=== PATIENT | male | born 1960 | race Caucasian/White ===

== ENCOUNTER → 2016-09-12 | Outpatient (REF) | payer BC ==
[~2016-09-12] MED LIST: ASPI81TA85 PO; CELE-19 PO; CIPR500T89 PO; CRES20TA PO; FISH1000 PO; FLAG500T PO; MINEOIL3 PO; NORC5TAB PO; PAME10CA PO; PRIL20CA9 PO; TOPA200T6 PO; TYLE325T5 PO; VITMTA PO; [UNRECOGNIZED DRUG - CODE] PO
== END ==
LOC: M SFHCADAM 08:59
PROVIDERS: ATTEND Physician Assistant Medical
DX: R10.30 Lower abdominal pain, unspecified (principal)

== ENCOUNTER → 2016-09-19 | Outpatient (REF) | payer BC | LOC: M SFHCADAM 09:04 | PROVIDERS: ATTEND Physician Assistant Medical | DX: N41.0 Acute prostatitis (principal) ==

== ENCOUNTER → 2016-10-06 | Outpatient (REF) | payer BC ==
[2016-10-06 16:38] LABS: BASO % 0.5 % (0.0-1.0); EOS # 0.4 K/mm3 (0.0-0.50); EOS % 4.1 % (0.0-3.0); LARGE UNSTAINED CELL # 0.1 K/mm3 (0.0-0.4); LARGE UNSTAINED CELL % 0.9 % (0.0-4.0); LYMPH # 2.1 K/mm3 (1.5-4.5); LYMPH % 19.9 % (24.0-44.0); MEAN CORPUSCULAR HEMOGLOBIN 32.9 pg (27.0-33.0); MEAN CORPUSCULAR HGB CONC 34.2 g/dl (32.0-36.5); MEAN CORPUSCULAR VOLUME 96.3 fl (80.0-96.0); MONO # 0.8 K/mm3 (0.0-0.8); MONO % 7.8 % (0.0-5.0); NEUTROPHILS # 6.8 K/mm3 (1.8-7.7); NEUTROPHILS % 66.8 % (36.0-66.0); PLATELET COUNT, AUTOMATED 159 k/mm3 (150-450); RED CELL DISTRIBUTION WIDTH 12.4 % (11.5-14.5); WHITE BLOOD COUNT 10.1 K/mm3 (4.0-10.0)
[2016-10-06 16:53] LABS: ALBUMIN 3.9 GM/DL (3.2-5.2); ALBUMIN/GLOBULIN RATIO 1.15 (1.00-1.93); ALKALINE PHOSPHATASE 158 U/L (45-117); ALT/SGPT 102 U/L (12-78); ANION GAP 10 MEQ/L (8-16); AST/SGOT 102 U/L (15-37); BILIRUBIN,TOTAL 0.8 MG/DL (0.2-1.0); BLOOD UREA NITROGEN 12 MG/DL (7-18); CALCIUM LEVEL 8.9 MG/DL (8.5-10.1); CARBON DIOXIDE LEVEL 27 MEQ/L (21-32); CHLORIDE LEVEL 100 MEQ/L (98-107); CREATININE FOR GFR 1.02 MG/DL (0.70-1.30); GLOMERULAR FILTRATION RATE > 60.0 (>56); GLUCOSE, FASTING 357 MG/DL (70-105); POTASSIUM SERUM 4.6 MEQ/L (3.5-5.1); SODIUM LEVEL 137 MEQ/L (136-145); TOTAL PROTEIN 7.3 GM/DL (6.4-8.2)
[2016-10-06 17:45] LABS: ERYTHROCYTE SEDIMENTATION RATE 41 mm/hr (0-20)
== END ==
LOC: M SFHCADAM 11:45
PROVIDERS: ATTEND Physician Assistant Medical
DX: M79.1 Myalgia (principal)

== ENCOUNTER 2016-10-09 08:10 | Emergency (ER) | payer BC ==
[2016-10-09] MEDS ORDERED: KETOROLAC 30 MG/ML VIAL (J1885) As Ordered ONE (09:10)
[2016-10-09 09:48] LABS: BASO # 0.1 K/mm3 (0.0-0.2); BASO % 0.7 % (0.0-1.0); EOS # 0.2 K/mm3 (0.0-0.50); EOS % 2.8 % (0.0-3.0); LARGE UNSTAINED CELL # 0.2 K/mm3 (0.0-0.4); LARGE UNSTAINED CELL % 2.2 % (0.0-4.0); LYMPH # 1.3 K/mm3 (1.5-4.5); LYMPH % 15.6 % (24.0-44.0); MEAN CORPUSCULAR HEMOGLOBIN 33.1 pg (27.0-33.0); MEAN CORPUSCULAR HGB CONC 35.5 g/dl (32.0-36.5); MEAN CORPUSCULAR VOLUME 93.4 fl (80.0-96.0); MONO # 0.5 K/mm3 (0.0-0.8); MONO % 5.7 % (0.0-5.0); NEUTROPHILS # 6.1 K/mm3 (1.8-7.7); NEUTROPHILS % 72.9 % (36.0-66.0); PLATELET COUNT, AUTOMATED 151 k/mm3 (150-450); RED CELL DISTRIBUTION WIDTH 12.2 % (11.5-14.5); WHITE BLOOD COUNT 8.4 K/mm3 (4.0-10.0)
[2016-10-09] MEDS ORDERED: ISOVUE-370 76% 100ML VIAL (Q9967) As Ordered ONE (09:57)
[2016-10-09 09:58] LABS: ALBUMIN 3.6 GM/DL (3.2-5.2); ALBUMIN/GLOBULIN RATIO 1.09 (1.00-1.93); ALKALINE PHOSPHATASE 145 U/L (45-117); ALT/SGPT 92 U/L (12-78); ANION GAP 9 MEQ/L (8-16); AST/SGOT 84 U/L (15-37); BILIRUBIN,TOTAL 0.8 MG/DL (0.2-1.0); BLOOD UREA NITROGEN 12 MG/DL (7-18); CALCIUM LEVEL 8.8 MG/DL (8.5-10.1); CARBON DIOXIDE LEVEL 26 MEQ/L (21-32); CHLORIDE LEVEL 105 MEQ/L (98-107); CREATININE FOR GFR 0.94 MG/DL (0.70-1.30); GLOMERULAR FILTRATION RATE > 60.0 (>56); GLUCOSE, FASTING 306 MG/DL (70-105); POTASSIUM SERUM 4.1 MEQ/L (3.5-5.1); SODIUM LEVEL 140 MEQ/L (136-145); TOTAL PROTEIN 6.9 GM/DL (6.4-8.2)
[2016-10-09 10:12] LABS: ERYTHROCYTE SEDIMENTATION RATE 52 mm/hr (0-20)
[2016-10-09] MEDS ORDERED: METOCLOPRAMIDE INJ 10MG/2ML VIAL (J2765) As Ordered ONE (10:17)
[2016-10-09] MEDS ORDERED: MORPHINE 4 MG/ML 1ML SYRINGE As Ordered ONE (10:17)
--- NOTE | 2016-10-09 10:24 | REP ---
Clinical: Acute pain. Technique: Axial contrast enhanced images from the lung bases to the pubic symphysis using 100 ml Isovue 370 intravenous contrast material with coronal and sagittal re-formations. Comparison: 08/22/2015. Findings: Lung bases clear. Visualized heart and pericardium normal. Fatty infiltration the liver noted without focal hepatic lesion. Spleen, pancreas, gallbladder, bilateral adrenal glands are normal for noncontrast examination. Kidneys and demonstrate stable 6.6 cm right renal cyst and bilateral nonobstructing calculi measuring up to 5 mm. No associated hydroureteronephrosis or significant acute perinephric stranding. The enteric system demonstrates colonic diverticula without acute diverticulitis. Normal terminal ileum and appendix identified in the right lower quadrant. Pelvis demonstrates normal bladder and prostate/seminal vesicles. Small fat containing left inguinal hernia. No pelvic fluid or ascites. No intraperitoneal or retroperitoneal adenopathy. Abdominal aorta and vasculature is normal. No free air. Surrounding musculoskeletal structures are intact. Prior fixation along the right S1 level and epidural stimulator. Impression: 1. Bilateral nephrolithiasis and 6.6 cm right renal cyst. 2. Colonic diverticula without acute diverticulitis. Previous acute sigmoid diverticulitis has resolved. 3. Hepatic steatosis. Fat containing left inguinal hernia. Signed by Denver Andrews MD 10/09/2016 10:16 A
--- NOTE | 2016-10-09 12:37 | EDDOCDS ---
Nurse's Notes [facility] Name: Jaret Turner Age: 56 yrs Sex: Male : 1960 Arrival Date: 10/09/2016 Time: 08:10 Bed I4 / M4 Private MD: Isrrael Sue MD Diagnosis: Nausea and vomiting;Generalized abdominal pain;Elevated blood glucose level;Fatty (change of) liver, not elsewhere classified;Ventral hernia-left inguinal Presentation: 10/09 08:36 Presenting complaint: Patient states: 3 weeks ago he had prostatitis and was on kcs antibiotic - made him nauseous so he stopped the antibiotic last Sunday - since then the nausea is getting worse. Vomits. Adult Sepsis Screening: The patient does not have new or worsening altered mentation. Patient's respiratory rate is less than 22. Systolic blood pressure is greater than 100. Patient has a qSOFA score of 0- Negative Sepsis Screen. Suicide/Homicide risk assessment- the patient denies having any suicidal and/or homicidal ideations and does not present with any other emotional, behavioral or mental health complaints. Status: Patient is not a student services advisor or dependent. Transition of care: patient was not received from another setting of care. 08:36 Acuity: TYE Level 3 kcs 08:36 Method Of Arrival: Walkin/Carried/Asstd kcs Triage Assessment: 08:39 General: Appears comfortable, well developed, well nourished, well groomed, Behavior is kcs cooperative, flat. Pain: Location: left side of abdomen Pain currently is 4 out of 10 on a pain scale. HIV screening NA for this visit Offered previously. Neurological: Level of Consciousness is awake, alert. Respiratory: Airway is patent Respiratory effort is even, unlabored, Respiratory pattern is regular, symmetrical. GI: Reports nausea, vomiting. Derm: Skin is intact, is healthy with good turgor, Skin is dry, Skin is normal. Historical: - Allergies: Lipitor (elevated liver enzymes); Cefuroxime (severe diarrhea); - Home Meds: 1. Celebrex 200 mg Oral cap 1 cap once daily 2. Crestor 20 mg Oral tab 1 tab nightly 3. Fish Oil Oral cap 2000 mg twice a day 4. garlic 2,000 mg oral cap 1 tab twice a day 5. One Daily Multivitamin oral tab 1 tab daily 6. Prilosec 20 mg Oral cpDR 1 cap 2 times per day 7. Topamax 200 mg Oral tab 1 tab nightly - PMHx: Chronic Low Back Pain; GERD; Hypercholesterolemia; Diverticulitis; - PSHx: Vasectomy (1993); Spinal Fusion (1997); Dorsal Column Stimulator placement; spinal fusion with fixaction; Hernia repair- Right inguinal; - Social history: Smoking status: Patient states was never smoker of tobacco. No barriers to communication noted, The patient speaks fluent Zambian. - Family history: Not pertinent. - : The pt / caregiver states he / she is not on anticoagulants. Home medication list is obtained from the patient, [employer] import data. - Exposure Risk Screening:: None identified. Screenin:12 Screening information is obtained from the patient. Fall risk: No risks identified. ja5 Assistance ADL's: requires no assistance with activities of daily living. Abuse/DV Screen: The patient / caregiver reports he/she is: not in a situation that causes fear, pain or injury. Nutritional screening: On no prescribed diet. Advance Directives: Currently, there is no health care proxy. There is no active DNR order. There is no living will. There is no Power of Web Graphic Designer. home support is adequate. Assessment: 09:10 General: Appears in no apparent distress, Behavior is appropriate for age, cooperative. ja5 Pain: Location: posterior aspect of left lateral abdomen Pain currently is 4 out of 10 on a pain scale. Neurological: Level of Consciousness is awake, alert, Oriented to person, place, time. Cardiovascular: Capillary refill < 3 seconds Heart tones S1 S2 present. Respiratory: Respiratory effort is even, unlabored, Respiratory pattern is regular, symmetrical. GI: Abdomen is bloated according to patient Bowel sounds present X 4 quads. Abd is soft X 4 quads Abd is tender to palpation. Derm: Skin is pink, warm & dry. 10:07 General: Patient returned from CT scan, states he is still having pain in his abdomen ja5 and nausea. He is resting in stretcher,with at bedside. Provider notified.. 11:02 General: Appears in no apparent distress, Behavior is appropriate for age, cooperative. dsf Neurological: Level of Consciousness is awake, alert. Cardiovascular: No deficits noted. Respiratory: No deficits noted. GI: Reports nausea has not changed. Derm: Skin is pink, warm & dry. 12:34 Adult Sepsis Screening: The patient does not have new or worsening altered mentation. dsf Patient's respiratory rate is less than 22. Systolic blood pressure is greater than 100. Patient has a qSOFA score of 0- Negative Sepsis Screen. General: Appears in no apparent distress, Behavior is appropriate for age, cooperative. Neurological: Level of Consciousness is awake, alert. Cardiovascular: Capillary refill < 3 seconds. Respiratory: Airway is patent Respiratory effort is even, unlabored, Respiratory pattern is regular, symmetrical. Derm: Skin is pink, warm & dry. Vital Signs: 08:39 BP 142 / 87; Pulse 114; Resp 20; Temp 100.0(TE); Pulse Ox 95% on R/A; Weight 103.42 kg kcs (R); Height 5 ft. 5 in. (165.10 cm) (R); Pain 4/10; 10:25 BP 123 / 72; Pulse 91; Resp 20; Temp 97.5(O); Pulse Ox 97% on R/A; Pain 5/10; jc4 12:33 BP 141 / 84; Pulse 80; Resp 20; Temp 96.8(O); Pulse Ox 95% on R/A; Pain 4/10; dsf 08:39 Body Mass Index 37.94 (103.42 kg, 165.10 cm) [facility] Vitals: 08:39 Log In Time: October 09, 2016 at 08:08. [facility] ED Course: 08:11 Patient visited by Chanelle Diehl Reg. lg 08:11 Isrrael Sue is Private Physician. lg 08:11 Patient moved to Waiting lg 08:38 Triage Initiated kcs 08:43 Dina Esparza,OLIVA is Primary Nurse. kcs 08:43 Jaelyn Dickey RN is Primary Nurse. kcs 08:43 Stan Worley PA-C is PHCP. cc10 08:43 Maty Salazar MD is Attending Physician. cc10 08:43 Patient visited by Stan Worley PA-C. cc10 08:43 Patient visited by Stan Worley PA-C. cc10 08:43 Patient moved to I4 / kcs 09:24 Patient visited by Dina Esparza RN. ja5 09:24 Inserted saline lock: 18 gauge in right antecubital area. ja5 09:24 Lipase Sent. 09:24 A1C Sent. 09:24 CRP Sent. 09:24 ESR Sent. 09:24 Complete Comphrensive Metabolic Sent. :24 CBC with Diff Sent. 09:25 The patient / caregiver is instructed regarding the plan of care and ED course. ja5 10:[address] dsf 10:05 Patient moved to I4 / M4 dsf 10:09 Patient visited by Dina Esparza RN. ja5 10:20 COUNTS INCLUDE 234 BEDS AT THE [facility] Payment Agreement was scanned into [employer] and attached to record. lg 10:39 UA Sent. jc4 10:49 CT ABD & PELVIS: IV Contrast Only: recent labs in chart. WNL Returned. EDMS 11:03 Patient visited by Gabriella Luna RN. dsf 12:13 Jamal Marin MD is Referral Physician. cc10 12:34 Discontinued lock intact, bleeding controlled, pressure dressing applied, No dsf redness/swelling at site. No procedures done that require assistance. Administered Medications: 09:24 Drug: NS 0.9% 1000 ml [sodium chloride 0.9 % injection solution] Route: IV; Rate: dsf bolus; Site: right antecubital; 10:25 Follow up: BP 123 / 72; Pulse 91 bpm; Resp 20 bpm; Temp 97.5 Oral; Pulse Ox 97% RA; jc4 Pain 5/10 Adult; IV Status: Completed infusion; IV Intake: 1000ml 09:24 Drug: ketorolac 30 mg [ketorolac 30 mg/mL (1 mL) injection solution (1 mL)] Route: IVP; dsf Site: right antecubital; 10:29 Drug: morphine 4 mg [morphine 4 mg/mL intravenous cartridge (1 mL)] Route: IVP; Site: jc4 right antecubital; 10:31 Drug: Metoclopramide 10 mg [metoclopramide 5 mg/mL injection solution] Route: IV; Rate: jc4 40 mg/hr; Infused Over: 15 mins; Site: right antecubital; 10:51 Follow up: IV Status: Completed infusion; IV Intake: 10ml dsf Intake: 10:25 IV: 1000.00ml; Total: 1000.00ml. jc4 10:51 IV: 10.00ml; Total: 1010.00ml. dsf Order Results: Lab Order: CBC with Diff; SPEC'M 10/09/16 09:21 Test: WHITE BLOOD COUNT; Value: 8.4; Range: 4.0-10.0; Units: K/mm3; Status: F Test: RED BLOOD COUNT; Value: 4.56; Range: 4.30-6.10; Units: M/mm3; Status: F Test: HEMOGLOBIN; Value: 15.1; Range: 14.0-18.0; Units: g/dl; Status: F Test: HEMATOCRIT; Value: 42.6; Range: 42.0-52.0; Units: %; Status: F Test: MEAN CORPUSCULAR VOLUME; Value: 93.4; Range: 80.0-96.0; Units: fl; Status: F Test: MEAN CORPUSCULAR HEMOGLOBIN; Value: 33.1; Range: 27.0-33.0; Abnormal: Above high normal; Units: pg; Status: F Test: MEAN CORPUSCULAR HGB CONC; Value: 35.5; Range: 32.0-36.5; Units: g/dl; Status: F Test: RED CELL DISTRIBUTION WIDTH; Value: 12.2; Range: 11.5-14.5; Units: %; Status: F Test: PLATELET COUNT, AUTOMATED; Value: 151; Range: 150-450; Units: k/mm3; Status: F Test: NEUTROPHILS %; Value: 72.9; Range: 36.0-66.0; Abnormal: Above high normal; Units: %; Status: F Test: LYMPH %; Value: 15.6; Range: 24.0-44.0; Abnormal: Below low normal; Units: %; Status: F Test: MONO %; Value: 5.7; Range: 0.0-5.0; Abnormal: Above high normal; Units: %; Status: F Test: EOS %; Value: 2.8; Range: 0.0-3.0; Units: %; Status: F Test: BASO %; Value: 0.7; Range: 0.0-1.0; Units: %; Status: F Test: LARGE UNSTAINED CELL %; Value: 2.2; Range: 0.0-4.0; Units: %; Status: F Test: NEUTROPHILS #; Value: 6.1; Range: 1.8-7.7; Units: K/mm3; Status: F Test: LYMPH #; Value: 1.3; Range: 1.5-4.5; Abnormal: Below low normal; Units: K/mm3; Status: F Test: MONO #; Value: 0.5; Range: 0.0-0.8; Units: K/mm3; Status: F Test: EOS #; Value: 0.2; Range: 0.0-0.50; Units: K/mm3; Status: F Test: BASO #; Value: 0.1; Range: 0.0-0.2; Units: K/mm3; Status: F Test: LARGE UNSTAINED CELL #; Value: 0.2; Range: 0.0-0.4; Units: K/mm3; Status: F Lab Order: Complete Comphrensive Metabolic; SPEC'M 10/09/16 09:21 Test: GLUCOSE, FASTING; Value: 306; Range: 70-105; Abnormal: Above high normal; Units: MG/DL; Status: F Test: BLOOD UREA NITROGEN; Value: 12; Range: 7-18; Units: MG/DL; Status: F Test: CREATININE FOR GFR; Value: 0.94; Range: 0.70-1.30; Units: MG/DL; Status: F Test: GLOMERULAR FILTRATION RATE; Value: > 60.0; Range: >56; Status: F Test: SODIUM LEVEL; Value: 140; Range: 136-145; Units: MEQ/L; Status: F Test: POTASSIUM SERUM; Value: 4.1; Range: 3.5-5.1; Units: MEQ/L; Status: F Test: CHLORIDE LEVEL; Value: 105; Range: 98-107; Units: MEQ/L; Status: F Test: CARBON DIOXIDE LEVEL; Value: 26; Range: 21-32; Units: MEQ/L; Status: F Test: ANION GAP; Value: 9; Range: 8-16; Units: MEQ/L; Status: F Test: CALCIUM LEVEL; Value: 8.8; Range: 8.5-10.1; Units: MG/DL; Status: F Test: AST/SGOT; Value: 84; Range: 15-37; Abnormal: Above high normal; Units: U/L; Status: F Test: ALT/SGPT; Value: 92; Range: 12-78; Abnormal: Above high normal; Units: U/L; Status: F Test: ALKALINE PHOSPHATASE; Value: 145; Range: 45-117; Abnormal: Above high normal; Units: U/L; Status: F Test: BILIRUBIN,TOTAL; Value: 0.8; Range: 0.2-1.0; Units: MG/DL; Status: F Test: TOTAL PROTEIN; Value: 6.9; Range: 6.4-8.2; Units: GM/DL; Status: F Test: ALBUMIN; Value: 3.6; Range: 3.2-5.2; Units: GM/DL; Status: F Test: ALBUMIN/GLOBULIN RATIO; Value: 1.09; Range: 1.00-1.93; Status: F Test Note: ; Units are mL/min/1.73 m2 Chronic Kidney Disease Staging per NKF: Stage I & II GFR >=60 Normal to Mildly Decreased Stage III GFR 30-59 Moderately Decreased Stage IV GFR 15-29 Severely Decreased Stage V GFR <15 Very Little GFR Left ESRD GFR <15 on SALES PERFORMANCE MANAGER Lab Order: ESR; 10/09/16 09:21 Test: ERYTHROCYTE SEDIMENTATION RATE; Value: 52; Range: 0-20; Abnormal: Above high normal; Units: mm/hr; Status: F Lab Order: CRP; [facility]10/09/16 09:21 Test: C REACTIVE PROTEIN QUANTITATIV; Value: 1.45; Range: 0.00-0.30; Abnormal: Above high normal; Units: MG/DL; Status: F Lab Order: A1C; [facility]10/09/16 09:21 Test: HEMOGLOBIN A1c; Value: 10.0; Range: 4.5-6.2; Abnormal: Above high normal; Units: %; Status: F Test: ESTIMATED AVERAGE GLUCOSE; Value: 240; Range: 60-110; Abnormal: Above high normal; Units: MG/DL; Status: F Lab Order: Lipase; [facility]10/09/16 09:21 Test: LIPASE; Value: 300; Range: 73-393; Units: U/L; Status: F Lab Order: UA; [facility]10/09/16 10:34 Test: APPEARANCE, URINE; Value: HAZY; Range: CLEAR; Status: F Test: COLOR, URINE; Value: JOSE LUIS; Range: YELLOW; Status: F Test: PH,URINE; Value: 6.0; Range: 5.0-9.0; Units: UNITS; Status: F Test: SPECIFIC GRAVITY URINE AUTO; Value: 1.047; Range: 1.002-1.035; Status: F Test: PROTEIN, URINE AUTO; Value: 2+; Range: NEGATIVE; Abnormal: Above high normal; Units: mg/dL; Status: F Test: GLUCOSE, URINE (UA) AUTO; Value: 3+; Range: NEGATIVE; Abnormal: Above high normal; Units: mg/dL; Status: F Test: KETONE, URINE AUTO; Value: TRACE; Range: NEGATIVE; Abnormal: Above high normal; Units: mg/dL; Status: F Test: UROBILINOGEN, URINE AUTO; Value: 0.2; Range: 0.0-2.0; Units: mg/dL; Status: F Test: BILIRUBIN, URINE AUTO; Value: NEGATIVE; Range: NEGATIVE; Status: F Test: NITRITE, URINE AUTO; Value: NEGATIVE; Range: NEGATIVE; Status: F Test: LEUKOCYTE ESTERASE, URINE AUTO; Value: NEGATIVE; Range: NEGATIVE; Status: F Test: BLOOD, URINE BLOOD; Value: 1+; Range: NEGATIVE; Abnormal: Above high normal; Status: F Test: WBC, URINE AUTO; Value: 15; Range: 0-3; Abnormal: Above high normal; Units: /HPF; Status: F Test: RBC, URINE AUTO; Value: 12; Range: 0-3; Abnormal: Above high normal; Units: /HPF; Status: F Test: BACTERIA, URINE AUTO; Value: NEGATIVE; Range: NEGATIVE; Status: F Test: SQUAMOUS EPITHELIAL CELL UR AU; Value: 0; Range: 0-6; Units: /HPF; Status: F Test: MUCUS, URINE; Value: SMALL; Range: NEGATIVE; Status: F Test: HYALINE CAST, URINE AUTO; Value: 0; Range: 0-1; Units: /LPF; Status: F Radiology Order: CT ABD & PELVIS: IV Contrast Only: recent labs in chart. WNL Test: CT ABD & PELVIS: IV Contrast Only: recent labs in chart. WNL REASON FOR EXAMINATION: Diverticulitis; Clinical: Acute pain.; ; Technique: Axial contrast enhanced images from the lung bases to the pubic; symphysis using 100 ml Isovue 370 intravenous contrast material with coronal and; sagittal re-formations.; ; Comparison: 08/22/2015.; ; Findings:; Lung bases clear. Visualized heart and pericardium normal.; ; Fatty infiltration the liver noted without focal hepatic lesion. Spleen,; pancreas, gallbladder, bilateral adrenal glands are normal for noncontrast; examination. Kidneys and demonstrate stable 6.6 cm right renal cyst and; bilateral nonobstructing calculi measuring up to 5 mm. No associated; hydroureteronephrosis or significant acute perinephric stranding. The enteric; system demonstrates colonic diverticula without acute diverticulitis. Normal; terminal ileum and appendix identified in the right lower quadrant. Pelvis; demonstrates normal bladder and prostate/seminal vesicles. Small fat containing; left inguinal hernia. No pelvic fluid or ascites. No intraperitoneal or; retroperitoneal adenopathy. Abdominal aorta and vasculature is normal. No free; air. Surrounding musculoskeletal structures are intact. Prior fixation along; the right S1 level and epidural stimulator.; ; Impression:; 1. Bilateral nephrolithiasis and 6.6 cm right renal cyst.; 2. Colonic diverticula without acute diverticulitis. Previous acute sigmoid; diverticulitis has resolved.; 3. Hepatic steatosis. Fat containing left inguinal hernia.; ; ; Signed by; Denver Andrews MD 10/09/2016 10:16 A; Outcome: 12:13 Discharge ordered by Provider. cc10 12:34 Discharge Assessment: Patient awake, alert and oriented x 3. No cognitive and/or dsf functional deficits noted. Patient verbalized understanding of disposition instructions. patient administered narcotics - yes. Pt provided with safe discharge. The following High Risk Discharge criteria are identified: None. Discharged to home ambulatory, with significant other. Condition: stable. Discharge instructions given to patient, Instructed on discharge instructions, follow up and referral plans. medication usage, no driving heavy equipment, Demonstrated understanding of instructions, medications, Pt was receptive of discharge instructions/ teaching. Prescriptions given X 2. CT Study completed. Property sent home with patient. 12:36 Patient left the ED. dsf Signatures: Dispatcher [employer] EDMS Candida Lewis RN RN kcs Ganter, LoriLee, Jaelyn Ervin lg, RN RN jc4 Gabriella Luna RN Stan Herron PA-C PASandyC cc10 iDna Esparza RN RN ja5 Corrections: (The following items were deleted from the chart) 08:43 08:39 BP 142 / 87; Pulse 114bpm; Resp 20bpm; Pulse Ox 95% RA; 103.42 kg Reported; kcs Height 5 ft. 5 in. Reported; BMI: 37.9; Pain 4/10; kcs 10:10 10:07 General: Patient returned from CT scan, states he is still having pain in his ja5 abdomen and nausea. He is resting in stretcher,with at bedside.. ja5 MTDD
--- NOTE | 2016-10-09 12:37 | EDDOCDS ---
Physician Documentation [facility] Name: Jaret Turner Age: 56 yrs Sex: Male : 1960 Arrival Date: 10/09/2016 Time: 08:10 Bed I4 / M4 Private MD: Isrrael Sue MD Disposition: 10/09/16 12:13 Discharged to Home/Self Care. Impression: Nausea and vomiting, Generalized abdominal pain, Elevated blood glucose level, Fatty (change of) liver, not elsewhere classified, Ventral hernia - left inguinal. - Condition is Stable. - Discharge Instructions: Abdominal Pain, Adult, Nausea and Vomiting, Type 2 Diabetes Mellitus, Adult. - Prescriptions for Bentyl 20 mg Oral Tablet - take 1 tablet by ORAL route every 6 hours As needed; 20 tablet. ZOFRAN ODT 4 mg - dissolve 1 tablet by ORAL route 4 times per day As needed do not chew, do not swallow whole; 10 tablet. - Medication Reconciliation form. - Follow up: Emergency Department; When: As needed; Reason: Worsening of conditions. Follow up: Jamal Marin MD; When: Call to arrange an appointment; Reason: Wound/Symptom Recheck, Recheck today's complaints, Worsening of conditions, Continuance of care. - Problem is an ongoing problem. - Symptoms have improved. Historical: - Allergies: Lipitor (elevated liver enzymes); Cefuroxime (severe diarrhea); - Home Meds: 1. Celebrex 200 mg Oral cap 1 cap once daily 2. Crestor 20 mg Oral tab 1 tab nightly 3. Fish Oil Oral cap 2000 mg twice a day 4. garlic 2,000 mg oral cap 1 tab twice a day 5. One Daily Multivitamin oral tab 1 tab daily 6. Prilosec 20 mg Oral cpDR 1 cap 2 times per day 7. Topamax 200 mg Oral tab 1 tab nightly - PMHx: Chronic Low Back Pain; GERD; Hypercholesterolemia; Diverticulitis; - PSHx: Vasectomy (1993); Spinal Fusion (1997); Dorsal Column Stimulator placement; spinal fusion with fixaction; Hernia repair- Right inguinal; - Social history: Smoking status: Patient states was never smoker of tobacco. No barriers to communication noted, The patient speaks fluent Kiswahili. - Family history: Not pertinent. - : The pt / caregiver states he / she is not on anticoagulants. Home medication list is obtained from the patient, [employer] import data. - Exposure Risk Screening:: None identified. Vital Signs: 10/09 08:39 BP 142 / 87; Pulse 114; Resp 20; Temp 100.0(TE); Pulse Ox 95% on R/A; Weight 103.42 kg kcs / 228 lbs (R); Height 5 ft. 5 in. (165.10 cm) (R); Pain 4/10; 10:25 BP 123 / 72; Pulse 91; Resp 20; Temp 97.5(O); Pulse Ox 97% on R/A; Pain 5/10; jc4 12:33 BP 141 / 84; Pulse 80; Resp 20; Temp 96.8(O); Pulse Ox 95% on R/A; Pain 4/10; dsf 08:39 Body Mass Index 37.94 (103.42 kg, 165.10 cm) kcs MDM: 08:50 IV Saline Lock ordered. cc10 08:50 CT ABD & PELVIS: IV Contrast Only: recent labs in chart. WNL Ordered. EDMS 08:59 CBC with Diff Ordered. EDMS 08:59 Complete Comphrensive Metabolic Ordered. EDMS 08:59 ESR Ordered. EDMS 08:59 CRP Ordered. EDMS 08:59 A1C Ordered. EDMS 08:59 Lipase Ordered. EDMS 09:04 NS 0.9% 1000 ml IV at bolus once ordered. cc10 09:04 ketorolac 30 mg IVP once ordered. cc10 09:05 UA Ordered. EDMS 09:08 Financial registration complete. lg 10:10 CBC with Diff Reviewed. cc10 10:10 Complete Comphrensive Metabolic Reviewed. cc10 10:10 CRP Reviewed. cc10 10:10 Lipase Reviewed. cc10 10:11 Metoclopramide 10 mg IV at 40 mg/hr once over 15 mins ordered. cc10 10:12 morphine 4 mg IVP once ordered. cc10 10:20 [facility] [place] Payment Agreement was scanned into [employer] and attached to record. lg 10:59 CBC with Diff Reviewed. cc10 10:59 ESR Reviewed. cc10 10:59 A1C Reviewed. cc10 10:59 UA Reviewed. cc10 10:59 CT ABD & PELVIS: IV Contrast Only: recent labs in chart. WNL Reviewed. cc10 Administered Medications: 09:24 Drug: NS 0.9% 1000 ml [sodium chloride 0.9 % injection solution] Route: IV; Rate: dsf bolus; Site: right antecubital; 10:25 Follow up: BP 123 / 72; Pulse 91 bpm; Resp 20 bpm; Temp 97.5 Oral; Pulse Ox 97% RA; jc4 Pain 5/10 Adult; IV Status: Completed infusion; IV Intake: 1000ml 09:24 Drug: ketorolac 30 mg [ketorolac 30 mg/mL (1 mL) injection solution (1 mL)] Route: IVP; dsf Site: right antecubital; 10:29 Drug: morphine 4 mg [morphine 4 mg/mL intravenous cartridge (1 mL)] Route: IVP; Site: jc4 right antecubital; 10:31 Drug: Metoclopramide 10 mg [metoclopramide 5 mg/mL injection solution] Route: IV; Rate: jc4 40 mg/hr; Infused Over: 15 mins; Site: right antecubital; 10:51 Follow up: IV Status: Completed infusion; IV Intake: 10ml dsf Signatures: Dispatcher [employer] EDCandida Mark, RN RN kcs Chanelle Diehl, Reg Reg lg Gabriella Luna RN RN dsf Stan Worley, PA-Ever PA-Ever cc10 Jaelyn Dickey RN jc4 The chart was reviewed and I authenticate all verbal orders and agree with the evaluation and treatment provided.Attachments: 10:20 [facility] Payment Agreement lg MTDD
--- NOTE | 2016-10-11 13:37 | EDDOCDS ---
Physician Documentation [facility] Name: Jaret Turner Age: 56 yrs Sex: Male : 1960 Arrival Date: 10/09/2016 Time: 08:10 Bed I4 / M4 Private MD: Isrrael Sue MD Disposition: 10/09/16 12:13 Discharged to Home/Self Care. Impression: Nausea and vomiting, Generalized abdominal pain, Elevated blood glucose level, Fatty (change of) liver, not elsewhere classified, Ventral hernia - left inguinal. - Condition is Stable. - Discharge Instructions: Abdominal Pain, Adult, Nausea and Vomiting, Type 2 Diabetes Mellitus, Adult. - Prescriptions for Bentyl 20 mg Oral Tablet - take 1 tablet by ORAL route every 6 hours As needed; 20 tablet. ZOFRAN ODT 4 mg - dissolve 1 tablet by ORAL route 4 times per day As needed do not chew, do not swallow whole; 10 tablet. - Medication Reconciliation form. - Follow up: Emergency Department; When: As needed; Reason: Worsening of conditions. Follow up: Jamal Marin MD; When: Call to arrange an appointment; Reason: Wound/Symptom Recheck, Recheck today's complaints, Worsening of conditions, Continuance of care. - Problem is an ongoing problem. - Symptoms have improved. Historical: - Allergies: Lipitor (elevated liver enzymes); Cefuroxime (severe diarrhea); - Home Meds: 1. Celebrex 200 mg Oral cap 1 cap once daily 2. Crestor 20 mg Oral tab 1 tab nightly 3. Fish Oil Oral cap 2000 mg twice a day 4. garlic 2,000 mg oral cap 1 tab twice a day 5. One Daily Multivitamin oral tab 1 tab daily 6. Prilosec 20 mg Oral cpDR 1 cap 2 times per day 7. Topamax 200 mg Oral tab 1 tab nightly - PMHx: Chronic Low Back Pain; GERD; Hypercholesterolemia; Diverticulitis; - PSHx: Vasectomy (1993); Spinal Fusion (1997); Dorsal Column Stimulator placement; spinal fusion with fixaction; Hernia repair- Right inguinal; - Social history: Smoking status: Patient states was never smoker of tobacco. No barriers to communication noted, The patient speaks fluent [place]. - Family history: Not pertinent. - : The pt / caregiver states he / she is not on anticoagulants. Home medication list is obtained from the patient, [email or web address] import data. - Exposure Risk Screening:: None identified. Vital Signs: 10/09 08:39 BP 142 / 87; Pulse 114; Resp 20; Temp 100.0(TE); Pulse Ox 95% on R/A; Weight 103.42 kg kcs / 228 lbs (R); Height 5 ft. 5 in. (165.10 cm) (R); Pain 4/10; 10:25 BP 123 / 72; Pulse 91; Resp 20; Temp 97.5(O); Pulse Ox 97% on R/A; Pain 5/10; jc4 12:33 BP 141 / 84; Pulse 80; Resp 20; Temp 96.8(O); Pulse Ox 95% on R/A; Pain 4/10; dsf 08:39 Body Mass Index 37.94 (103.42 kg, 165.10 cm) kcs MDM: 08:50 IV Saline Lock ordered. cc10 08:50 CT ABD & PELVIS: IV Contrast Only: recent labs in chart. WNL Ordered. EDMS 08:59 CBC with Diff Ordered. EDMS 08:59 Complete Comphrensive Metabolic Ordered. EDMS 08:59 ESR Ordered. EDMS 08:59 CRP Ordered. EDMS 08:59 A1C Ordered. EDMS 08:59 Lipase Ordered. EDMS 09:04 NS 0.9% 1000 ml IV at bolus once ordered. cc10 09:04 ketorolac 30 mg IVP once ordered. cc10 09:05 UA Ordered. EDMS 09:08 Financial registration complete. lg 10:10 CBC with Diff Reviewed. cc10 10:10 Complete Comphrensive Metabolic Reviewed. cc10 10:10 CRP Reviewed. cc10 10:10 Lipase Reviewed. cc10 10:11 Metoclopramide 10 mg IV at 40 mg/hr once over 15 mins ordered. cc10 10:12 morphine 4 mg IVP once ordered. cc10 10:20 [facility] [place] Payment Agreement was scanned into [employer] and attached to record. lg 10:59 CBC with Diff Reviewed. cc10 10:59 ESR Reviewed. cc10 10:59 A1C Reviewed. cc10 10:59 UA Reviewed. cc10 10:59 CT ABD & PELVIS: IV Contrast Only: recent labs in chart. WNL Reviewed. cc10 10/10 12:46 T-Sheet-- Draft Copy was scanned into [employer] and attached to record. gb Administered Medications: 10/09 09:24 Drug: NS 0.9% 1000 ml [sodium chloride 0.9 % injection solution] Route: IV; Rate: dsf bolus; Site: right antecubital; 10:25 Follow up: BP 123 / 72; Pulse 91 bpm; Resp 20 bpm; Temp 97.5 Oral; Pulse Ox 97% RA; jc4 Pain 5/10 Adult; IV Status: Completed infusion; IV Intake: 1000ml 09:24 Drug: ketorolac 30 mg [ketorolac 30 mg/mL (1 mL) injection solution (1 mL)] Route: IVP; dsf Site: right antecubital; 10:29 Drug: morphine 4 mg [morphine 4 mg/mL intravenous cartridge (1 mL)] Route: IVP; Site: jc4 right antecubital; 10:31 Drug: Metoclopramide 10 mg [metoclopramide 5 mg/mL injection solution] Route: IV; Rate: jc4 40 mg/hr; Infused Over: 15 mins; Site: right antecubital; 10:51 Follow up: IV Status: Completed infusion; IV Intake: 10ml dsf Signatures: Dispatcher [employer] EDMS Candida Lewis, OLIVA RN kcs Avis Mathis, Reg Reg gb Chanelle Diehl, Reg Reg lg Gabriella Luna RN RN dsf Stan Worley, PAIla PAIla cc10 Jaelyn Dickey RN jc4 The chart was reviewed and I authenticate all verbal orders and agree with the evaluation and treatment provided.Attachments: 10:20 [facility] Payment Agreement lg 10/10 12:46 T-Sheet-- Draft Copy gb Chart Complete MTDD
--- NOTE | 2016-10-11 13:37 | EDDOCDS ---
Physician Documentation [facility] Name: Jaret Turner Age: 56 yrs Sex: Male : 1960 Arrival Date: 10/09/2016 Time: 08:10 Bed I4 / M4 Private MD: Isrrael Sue MD Disposition: 10/09/16 12:13 Discharged to Home/Self Care. Impression: Nausea and vomiting, Generalized abdominal pain, Elevated blood glucose level, Fatty (change of) liver, not elsewhere classified, Ventral hernia - left inguinal. - Condition is Stable. - Discharge Instructions: Abdominal Pain, Adult, Nausea and Vomiting, Type 2 Diabetes Mellitus, Adult. - Prescriptions for Bentyl 20 mg Oral Tablet - take 1 tablet by ORAL route every 6 hours As needed; 20 tablet. ZOFRAN ODT 4 mg - dissolve 1 tablet by ORAL route 4 times per day As needed do not chew, do not swallow whole; 10 tablet. - Medication Reconciliation form. - Follow up: Emergency Department; When: As needed; Reason: Worsening of conditions. Follow up: Jamal Marin MD; When: Call to arrange an appointment; Reason: Wound/Symptom Recheck, Recheck today's complaints, Worsening of conditions, Continuance of care. - Problem is an ongoing problem. - Symptoms have improved. Historical: - Allergies: Lipitor (elevated liver enzymes); Cefuroxime (severe diarrhea); - Home Meds: 1. Celebrex 200 mg Oral cap 1 cap once daily 2. Crestor 20 mg Oral tab 1 tab nightly 3. Fish Oil Oral cap 2000 mg twice a day 4. garlic 2,000 mg oral cap 1 tab twice a day 5. One Daily Multivitamin oral tab 1 tab daily 6. Prilosec 20 mg Oral cpDR 1 cap 2 times per day 7. Topamax 200 mg Oral tab 1 tab nightly - PMHx: Chronic Low Back Pain; GERD; Hypercholesterolemia; Diverticulitis; - PSHx: Vasectomy (1993); Spinal Fusion (1997); Dorsal Column Stimulator placement; spinal fusion with fixaction; Hernia repair- Right inguinal; - Social history: Smoking status: Patient states was never smoker of tobacco. No barriers to communication noted, The patient speaks fluent Persian. - Family history: Not pertinent. - : The pt / caregiver states he / she is not on anticoagulants. Home medication list is obtained from the patient, [employer] import data. - Exposure Risk Screening:: None identified. Vital Signs: 10/09 08:39 BP 142 / 87; Pulse 114; Resp 20; Temp 100.0(TE); Pulse Ox 95% on R/A; Weight 103.42 kg kcs / 228 lbs (R); Height 5 ft. 5 in. (165.10 cm) (R); Pain 4/10; 10:25 BP 123 / 72; Pulse 91; Resp 20; Temp 97.5(O); Pulse Ox 97% on R/A; Pain 5/10; jc4 12:33 BP 141 / 84; Pulse 80; Resp 20; Temp 96.8(O); Pulse Ox 95% on R/A; Pain 4/10; dsf 08:39 Body Mass Index 37.94 (103.42 kg, 165.10 cm) kcs MDM: 08:50 IV Saline Lock ordered. cc10 08:50 CT ABD & PELVIS: IV Contrast Only: recent labs in chart. WNL Ordered. EDMS 08:59 CBC with Diff Ordered. EDMS 08:59 Complete Comphrensive Metabolic Ordered. EDMS 08:59 ESR Ordered. EDMS 08:59 CRP Ordered. EDMS 08:59 A1C Ordered. EDMS 08:59 Lipase Ordered. EDMS 09:04 NS 0.9% 1000 ml IV at bolus once ordered. cc10 09:04 ketorolac 30 mg IVP once ordered. cc10 09:05 UA Ordered. EDMS 09:08 Financial registration complete. lg 10:10 CBC with Diff Reviewed. cc10 10:10 Complete Comphrensive Metabolic Reviewed. cc10 10:10 CRP Reviewed. cc10 10:10 Lipase Reviewed. cc10 10:11 Metoclopramide 10 mg IV at 40 mg/hr once over 15 mins ordered. cc10 10:12 morphine 4 mg IVP once ordered. cc10 10:20 [facility] [place] Payment Agreement was scanned into [facility] and attached to record. lg 10:59 CBC with Diff Reviewed. cc10 10:59 ESR Reviewed. cc10 10:59 A1C Reviewed. cc10 10:59 UA Reviewed. cc10 10:59 CT ABD & PELVIS: IV Contrast Only: recent labs in chart. WNL Reviewed. cc10 10/10 12:46 T-Sheet-- Draft Copy was scanned into [facility] and attached to record. gb Administered Medications: 10/09 09:24 Drug: NS 0.9% 1000 ml [sodium chloride 0.9 % injection solution] Route: IV; Rate: dsf bolus; Site: right antecubital; 10:25 Follow up: BP 123 / 72; Pulse 91 bpm; Resp 20 bpm; Temp 97.5 Oral; Pulse Ox 97% RA; jc4 Pain 5/10 Adult; IV Status: Completed infusion; IV Intake: 1000ml 09:24 Drug: ketorolac 30 mg [ketorolac 30 mg/mL (1 mL) injection solution (1 mL)] Route: IVP; dsf Site: right antecubital; 10:29 Drug: morphine 4 mg [morphine 4 mg/mL intravenous cartridge (1 mL)] Route: IVP; Site: jc4 right antecubital; 10:31 Drug: Metoclopramide 10 mg [metoclopramide 5 mg/mL injection solution] Route: IV; Rate: jc4 40 mg/hr; Infused Over: 15 mins; Site: right antecubital; 10:51 Follow up: IV Status: Completed infusion; IV Intake: 10ml dsf Signatures: Dispatcher [employer] EDMS Candida Lewis, OLIVA RN kcs Avis Mathis, Reg Reg gb Chanelle Diehl, Reg Reg lg Gabriella Luna RN RN dsf Stan Worley, PAIla PAIla cc10 Jaelyn Dickey RN jc4 The chart was reviewed and I authenticate all verbal orders and agree with the evaluation and treatment provided.Attachments: 10:20 [facility] Payment Agreement lg 10/10 12:46 T-Sheet-- Draft Copy gb Chart Complete MTDD
--- NOTE | 2016-10-11 13:37 | EDDOCDS ---
Nurse's Notes [facility] Name: Jaret Turner Age: 56 yrs Sex: Male : 1960 Arrival Date: 10/09/2016 Time: 08:10 Bed I4 / M4 Private MD: Isrrael Sue MD Diagnosis: Nausea and vomiting;Generalized abdominal pain;Elevated blood glucose level;Fatty (change of) liver, not elsewhere classified;Ventral hernia-left inguinal Presentation: 10/09 08:36 Presenting complaint: Patient states: 3 weeks ago he had prostatitis and was on kcs antibiotic - made him nauseous so he stopped the antibiotic last Sunday - since then the nausea is getting worse. Vomits. Adult Sepsis Screening: The patient does not have new or worsening altered mentation. Patient's respiratory rate is less than 22. Systolic blood pressure is greater than 100. Patient has a qSOFA score of 0- Negative Sepsis Screen. Suicide/Homicide risk assessment- the patient denies having any suicidal and/or homicidal ideations and does not present with any other emotional, behavioral or mental health complaints. Status: Patient is not a inter com servicer or dependent. Transition of care: patient was not received from another setting of care. 08:36 Acuity: TYE Level 3 kcs 08:36 Method Of Arrival: Walkin/Carried/Asstd kcs Triage Assessment: 08:39 General: Appears comfortable, well developed, well nourished, well groomed, Behavior is kcs cooperative, flat. Pain: Location: left side of abdomen Pain currently is 4 out of 10 on a pain scale. HIV screening NA for this visit Offered previously. Neurological: Level of Consciousness is awake, alert. Respiratory: Airway is patent Respiratory effort is even, unlabored, Respiratory pattern is regular, symmetrical. GI: Reports nausea, vomiting. Derm: Skin is intact, is healthy with good turgor, Skin is dry, Skin is normal. Historical: - Allergies: Lipitor (elevated liver enzymes); Cefuroxime (severe diarrhea); - Home Meds: 1. Celebrex 200 mg Oral cap 1 cap once daily 2. Crestor 20 mg Oral tab 1 tab nightly 3. Fish Oil Oral cap 2000 mg twice a day 4. garlic 2,000 mg oral cap 1 tab twice a day 5. One Daily Multivitamin oral tab 1 tab daily 6. Prilosec 20 mg Oral cpDR 1 cap 2 times per day 7. Topamax 200 mg Oral tab 1 tab nightly - PMHx: Chronic Low Back Pain; GERD; Hypercholesterolemia; Diverticulitis; - PSHx: Vasectomy (1993); Spinal Fusion (1997); Dorsal Column Stimulator placement; spinal fusion with fixaction; Hernia repair- Right inguinal; - Social history: Smoking status: Patient states was never smoker of tobacco. No barriers to communication noted, The patient speaks fluent Tajik. - Family history: Not pertinent. - : The pt / caregiver states he / she is not on anticoagulants. Home medication list is obtained from the patient, Ensyn import data. - Exposure Risk Screening:: None identified. Screenin:12 Screening information is obtained from the patient. Fall risk: No risks identified. ja5 Assistance ADL's: requires no assistance with activities of daily living. Abuse/DV Screen: The patient / caregiver reports he/she is: not in a situation that causes fear, pain or injury. Nutritional screening: On no prescribed diet. Advance Directives: Currently, there is no health care proxy. There is no active DNR order. There is no living will. There is no Power of Tank Operator. home support is adequate. Assessment: 09:10 General: Appears in no apparent distress, Behavior is appropriate for age, cooperative. ja5 Pain: Location: posterior aspect of left lateral abdomen Pain currently is 4 out of 10 on a pain scale. Neurological: Level of Consciousness is awake, alert, Oriented to person, place, time. Cardiovascular: Capillary refill < 3 seconds Heart tones S1 S2 present. Respiratory: Respiratory effort is even, unlabored, Respiratory pattern is regular, symmetrical. GI: Abdomen is bloated according to patient Bowel sounds present X 4 quads. Abd is soft X 4 quads Abd is tender to palpation. Derm: Skin is pink, warm & dry. 10:07 General: Patient returned from CT scan, states he is still having pain in his abdomen ja5 and nausea. He is resting in stretcher,with at bedside. Provider notified.. 11:02 General: Appears in no apparent distress, Behavior is appropriate for age, cooperative. dsf Neurological: Level of Consciousness is awake, alert. Cardiovascular: No deficits noted. Respiratory: No deficits noted. GI: Reports nausea has not changed. Derm: Skin is pink, warm & dry. 12:34 Adult Sepsis Screening: The patient does not have new or worsening altered mentation. dsf Patient's respiratory rate is less than 22. Systolic blood pressure is greater than 100. Patient has a qSOFA score of 0- Negative Sepsis Screen. General: Appears in no apparent distress, Behavior is appropriate for age, cooperative. Neurological: Level of Consciousness is awake, alert. Cardiovascular: Capillary refill < 3 seconds. Respiratory: Airway is patent Respiratory effort is even, unlabored, Respiratory pattern is regular, symmetrical. Derm: Skin is pink, warm & dry. Vital Signs: 08:39 BP 142 / 87; Pulse 114; Resp 20; Temp 100.0(TE); Pulse Ox 95% on R/A; Weight 103.42 kg kcs (R); Height 5 ft. 5 in. (165.10 cm) (R); Pain 4/10; 10:25 BP 123 / 72; Pulse 91; Resp 20; Temp 97.5(O); Pulse Ox 97% on R/A; Pain 5/10; jc4 12:33 BP 141 / 84; Pulse 80; Resp 20; Temp 96.8(O); Pulse Ox 95% on R/A; Pain 4/10; dsf 08:39 Body Mass Index 37.94 (103.42 kg, 165.10 cm) [facility] Vitals: 08:39 Log In Time: October 09, 2016 at 08:08. [facility] ED Course: 08:11 Patient visited by Chanelle Diehl Reg. lg 08:11 Isrrael Sue is Private Physician. lg 08:11 Patient moved to Waiting lg 08:38 Triage Initiated kcs 08:43 Dina Esparza,OLIVA is Primary Nurse. kcs 08:43 Jaelyn Dickey RN is Primary Nurse. kcs 08:43 Stan Worley PA-C is PHCP. cc10 08:43 Maty Salazar MD is Attending Physician. cc10 08:43 Patient visited by Stan Worley PA-C. cc10 08:43 Patient visited by Stan Worley PA-C. cc10 08:43 Patient moved to I4 / kcs 09:24 Patient visited by Dina Esparza RN. ja5 09:24 Inserted saline lock: 18 gauge in right antecubital area. ja5 09:24 Lipase Sent. 09:24 A1C Sent. 09:24 CRP Sent. 09:24 ESR Sent. :24 Complete Comphrensive Metabolic Sent. :24 CBC with Diff Sent. 09:25 The patient / caregiver is instructed regarding the plan of care and ED course. ja5 10:[address] dsf 10:05 Patient moved to I4 / M4 dsf 10:09 Patient visited by Dina Esparza RN. ja5 10:20 [facility] Payment Agreement was scanned into iContact and attached to record. lg 10:39 UA Sent. jc4 10:49 CT ABD & PELVIS: IV Contrast Only: recent labs in chart. WNL Returned. EDMS 11:03 Patient visited by Gabriella Luna RN. dsf 12:13 Jamal Marin MD is Referral Physician. cc10 12:34 Discontinued lock intact, bleeding controlled, pressure dressing applied, No dsf redness/swelling at site. No procedures done that require assistance. 10/10 12:46 T-Sheet-- Draft Copy was scanned into iContact and attached to record. gb Administered Medications: 10/09 09:24 Drug: NS 0.9% 1000 ml [sodium chloride 0.9 % injection solution] Route: IV; Rate: dsf bolus; Site: right antecubital; 10:25 Follow up: BP 123 / 72; Pulse 91 bpm; Resp 20 bpm; Temp 97.5 Oral; Pulse Ox 97% RA; jc4 Pain 5/10 Adult; IV Status: Completed infusion; IV Intake: 1000ml 09:24 Drug: ketorolac 30 mg [ketorolac 30 mg/mL (1 mL) injection solution (1 mL)] Route: IVP; dsf Site: right antecubital; 10:29 Drug: morphine 4 mg [morphine 4 mg/mL intravenous cartridge (1 mL)] Route: IVP; Site: jc4 right antecubital; 10:31 Drug: Metoclopramide 10 mg [metoclopramide 5 mg/mL injection solution] Route: IV; Rate: jc4 40 mg/hr; Infused Over: 15 mins; Site: right antecubital; 10:51 Follow up: IV Status: Completed infusion; IV Intake: 10ml dsf Intake: 10:25 IV: 1000.00ml; Total: 1000.00ml. jc4 10:51 IV: 10.00ml; Total: 1010.00ml. dsf Order Results: Lab Order: CBC with Diff; SPEC'M 10/09/16 09:21 Test: WHITE BLOOD COUNT; Value: 8.4; Range: 4.0-10.0; Units: K/mm3; Status: F Test: RED BLOOD COUNT; Value: 4.56; Range: 4.30-6.10; Units: M/mm3; Status: F Test: HEMOGLOBIN; Value: 15.1; Range: 14.0-18.0; Units: g/dl; Status: F Test: HEMATOCRIT; Value: 42.6; Range: 42.0-52.0; Units: %; Status: F Test: MEAN CORPUSCULAR VOLUME; Value: 93.4; Range: 80.0-96.0; Units: fl; Status: F Test: MEAN CORPUSCULAR HEMOGLOBIN; Value: 33.1; Range: 27.0-33.0; Abnormal: Above high normal; Units: pg; Status: F Test: MEAN CORPUSCULAR HGB CONC; Value: 35.5; Range: 32.0-36.5; Units: g/dl; Status: F Test: RED CELL DISTRIBUTION WIDTH; Value: 12.2; Range: 11.5-14.5; Units: %; Status: F Test: PLATELET COUNT, AUTOMATED; Value: 151; Range: 150-450; Units: k/mm3; Status: F Test: NEUTROPHILS %; Value: 72.9; Range: 36.0-66.0; Abnormal: Above high normal; Units: %; Status: F Test: LYMPH %; Value: 15.6; Range: 24.0-44.0; Abnormal: Below low normal; Units: %; Status: F Test: MONO %; Value: 5.7; Range: 0.0-5.0; Abnormal: Above high normal; Units: %; Status: F Test: EOS %; Value: 2.8; Range: 0.0-3.0; Units: %; Status: F Test: BASO %; Value: 0.7; Range: 0.0-1.0; Units: %; Status: F Test: LARGE UNSTAINED CELL %; Value: 2.2; Range: 0.0-4.0; Units: %; Status: F Test: NEUTROPHILS #; Value: 6.1; Range: 1.8-7.7; Units: K/mm3; Status: F Test: LYMPH #; Value: 1.3; Range: 1.5-4.5; Abnormal: Below low normal; Units: K/mm3; Status: F Test: MONO #; Value: 0.5; Range: 0.0-0.8; Units: K/mm3; Status: F Test: EOS #; Value: 0.2; Range: 0.0-0.50; Units: K/mm3; Status: F Test: BASO #; Value: 0.1; Range: 0.0-0.2; Units: K/mm3; Status: F Test: LARGE UNSTAINED CELL #; Value: 0.2; Range: 0.0-0.4; Units: K/mm3; Status: F Lab Order: Complete Comphrensive Metabolic; SPEC'M 10/09/16 09:21 Test: GLUCOSE, FASTING; Value: 306; Range: 70-105; Abnormal: Above high normal; Units: MG/DL; Status: F Test: BLOOD UREA NITROGEN; Value: 12; Range: 7-18; Units: MG/DL; Status: F Test: CREATININE FOR GFR; Value: 0.94; Range: 0.70-1.30; Units: MG/DL; Status: F Test: GLOMERULAR FILTRATION RATE; Value: > 60.0; Range: >56; Status: F Test: SODIUM LEVEL; Value: 140; Range: 136-145; Units: MEQ/L; Status: F Test: POTASSIUM SERUM; Value: 4.1; Range: 3.5-5.1; Units: MEQ/L; Status: F Test: CHLORIDE LEVEL; Value: 105; Range: 98-107; Units: MEQ/L; Status: F Test: CARBON DIOXIDE LEVEL; Value: 26; Range: 21-32; Units: MEQ/L; Status: F Test: ANION GAP; Value: 9; Range: 8-16; Units: MEQ/L; Status: F Test: CALCIUM LEVEL; Value: 8.8; Range: 8.5-10.1; Units: MG/DL; Status: F Test: AST/SGOT; Value: 84; Range: 15-37; Abnormal: Above high normal; Units: U/L; Status: F Test: ALT/SGPT; Value: 92; Range: 12-78; Abnormal: Above high normal; Units: U/L; Status: F Test: ALKALINE PHOSPHATASE; Value: 145; Range: 45-117; Abnormal: Above high normal; Units: U/L; Status: F Test: BILIRUBIN,TOTAL; Value: 0.8; Range: 0.2-1.0; Units: MG/DL; Status: F Test: TOTAL PROTEIN; Value: 6.9; Range: 6.4-8.2; Units: GM/DL; Status: F Test: ALBUMIN; Value: 3.6; Range: 3.2-5.2; Units: GM/DL; Status: F Test: ALBUMIN/GLOBULIN RATIO; Value: 1.09; Range: 1.00-1.93; Status: F Test Note: ; Units are mL/min/1.73 m2 Chronic Kidney Disease Staging per NKF: Stage I & II GFR >=60 Normal to Mildly Decreased Stage III GFR 30-59 Moderately Decreased Stage IV GFR 15-29 Severely Decreased Stage V GFR <15 Very Little GFR Left ESRD GFR <15 on EXECUTIVE COMMUNICATIONS MANAGER Lab Order: ESR; [facility] 10/09/16 Test: ERYTHROCYTE SEDIMENTATION RATE; Value: 52; Range: 0-20; Abnormal: Above high normal; Units: mm/hr; Status: F Lab Order: CRP; [facility] 10/09/16: Test: C REACTIVE PROTEIN QUANTITATIV; Value: 1.45; Range: 0.00-0.30; Abnormal: Above high normal; Units: MG/DL; Status: F Lab Order: A1C; [facility] 10/09/16 09: Test: HEMOGLOBIN A1c; Value: 10.0; Range: 4.5-6.2; Abnormal: Above high normal; Units: %; Status: F Test: ESTIMATED AVERAGE GLUCOSE; Value: 240; Range: 60-110; Abnormal: Above high normal; Units: MG/DL; Status: F Lab Order: Lipase; [facility] 10/09/16: Test: LIPASE; Value: 300; Range: 73-393; Units: U/L; Status: F Lab Order: UA; SPEC'M 10/09/16 10:34 Test: APPEARANCE, URINE; Value: HAZY; Range: CLEAR; Status: F Test: COLOR, URINE; Value: JOSE LUIS; Range: YELLOW; Status: F Test: PH,URINE; Value: 6.0; Range: 5.0-9.0; Units: UNITS; Status: F Test: SPECIFIC GRAVITY URINE AUTO; Value: 1.047; Range: 1.002-1.035; Status: F Test: PROTEIN, URINE AUTO; Value: 2+; Range: NEGATIVE; Abnormal: Above high normal; Units: mg/dL; Status: F Test: GLUCOSE, URINE (UA) AUTO; Value: 3+; Range: NEGATIVE; Abnormal: Above high normal; Units: mg/dL; Status: F Test: KETONE, URINE AUTO; Value: TRACE; Range: NEGATIVE; Abnormal: Above high normal; Units: mg/dL; Status: F Test: UROBILINOGEN, URINE AUTO; Value: 0.2; Range: 0.0-2.0; Units: mg/dL; Status: F Test: BILIRUBIN, URINE AUTO; Value: NEGATIVE; Range: NEGATIVE; Status: F Test: NITRITE, URINE AUTO; Value: NEGATIVE; Range: NEGATIVE; Status: F Test: LEUKOCYTE ESTERASE, URINE AUTO; Value: NEGATIVE; Range: NEGATIVE; Status: F Test: BLOOD, URINE BLOOD; Value: 1+; Range: NEGATIVE; Abnormal: Above high normal; Status: F Test: WBC, URINE AUTO; Value: 15; Range: 0-3; Abnormal: Above high normal; Units: /HPF; Status: F Test: RBC, URINE AUTO; Value: 12; Range: 0-3; Abnormal: Above high normal; Units: /HPF; Status: F Test: BACTERIA, URINE AUTO; Value: NEGATIVE; Range: NEGATIVE; Status: F Test: SQUAMOUS EPITHELIAL CELL UR AU; Value: 0; Range: 0-6; Units: /HPF; Status: F Test: MUCUS, URINE; Value: SMALL; Range: NEGATIVE; Status: F Test: HYALINE CAST, URINE AUTO; Value: 0; Range: 0-1; Units: /LPF; Status: F Radiology Order: CT ABD & PELVIS: IV Contrast Only: recent labs in chart. WNL Test: CT ABD & PELVIS: IV Contrast Only: recent labs in chart. WNL REASON FOR EXAMINATION: Diverticulitis; Clinical: Acute pain.; ; Technique: Axial contrast enhanced images from the lung bases to the pubic; symphysis using 100 ml Isovue 370 intravenous contrast material with coronal and; sagittal re-formations.; ; Comparison: 08/22/2015.; ; Findings:; Lung bases clear. Visualized heart and pericardium normal.; ; Fatty infiltration the liver noted without focal hepatic lesion. Spleen,; pancreas, gallbladder, bilateral adrenal glands are normal for noncontrast; examination. Kidneys and demonstrate stable 6.6 cm right renal cyst and; bilateral nonobstructing calculi measuring up to 5 mm. No associated; hydroureteronephrosis or significant acute perinephric stranding. The enteric; system demonstrates colonic diverticula without acute diverticulitis. Normal; terminal ileum and appendix identified in the right lower quadrant. Pelvis; demonstrates normal bladder and prostate/seminal vesicles. Small fat containing; left inguinal hernia. No pelvic fluid or ascites. No intraperitoneal or; retroperitoneal adenopathy. Abdominal aorta and vasculature is normal. No free; air. Surrounding musculoskeletal structures are intact. Prior fixation along; the right S1 level and epidural stimulator.; ; Impression:; 1. Bilateral nephrolithiasis and 6.6 cm right renal cyst.; 2. Colonic diverticula without acute diverticulitis. Previous acute sigmoid; diverticulitis has resolved.; 3. Hepatic steatosis. Fat containing left inguinal hernia.; ; ; Signed by; Denver Andrews MD 10/09/2016 10:16 A; Outcome: 12:13 Discharge ordered by Provider. cc10 12:34 Discharge Assessment: Patient awake, alert and oriented x 3. No cognitive and/or dsf functional deficits noted. Patient verbalized understanding of disposition instructions. patient administered narcotics - yes. Pt provided with safe discharge. The following High Risk Discharge criteria are identified: None. Discharged to home ambulatory, with significant other. Condition: stable. Discharge instructions given to patient, Instructed on discharge instructions, follow up and referral plans. medication usage, no driving heavy equipment, Demonstrated understanding of instructions, medications, Pt was receptive of discharge instructions/ teaching. Prescriptions given X 2. CT Study completed. Property sent home with patient. 12:36 Patient left the ED. dsf Signatures: Dispatcher [facility] Candida Vera RN RN Avis Mendoza Reg Reg gb Chanelle Diehl, Reg Reg lg Jaelyn Dickey, RN RN jc4 Gabriella Luna,RN RN Stan Denise PA-C PAIla cc10 Dina EsparzaRN RN ja5 Corrections: (The following items were deleted from the chart) 08:43 08:39 BP 142 / 87; Pulse 114bpm; Resp 20bpm; Pulse Ox 95% RA; 103.42 kg Reported; kcs Height 5 ft. 5 in. Reported; BMI: 37.9; Pain 4/10; kcs 10:10 10:07 General: Patient returned from CT scan, states he is still having pain in his ja5 abdomen and nausea. He is resting in stretcher,with at bedside.. ja5 Chart Complete MTDD
== END 2016-10-09 12:36 | disposition home or self-care (01) ==
LOC: M ED 08:10
DX: R11.2 Nausea with vomiting, unspecified (principal); K76.0 Fatty (change of) liver, not elsewhere classified; K43.9 Ventral hernia without obstruction or gangrene; E11.9 Type 2 diabetes mellitus without complications; I10 Essential (primary) hypertension; K21.9 Gastro-esophageal reflux disease without esophagitis; G89.29 Other chronic pain; M54.5 Low back pain; E78.00 Pure hypercholesterolemia, unspecified; E66.9 Obesity, unspecified; Z68.37 Body mass index [BMI] 37.0-37.9, adult; Z87.19 Personal history of other diseases of the digestive system; Z96.9 Presence of functional implant, unspecified; Z79.899 Other long term (current) drug therapy; Z88.1 Allergy status to other antibiotic agents; Z88.8 Allergy status to other drugs, medicaments and biological substances
CPT/HCPCS: 74177; 80053; 81001; 83036; 83690; 85025; 85652; 86140; 96361; 96365; 96375; 99284; J1885; J2765; Q9967

== ENCOUNTER → 2016-10-11 | Outpatient (REF) | payer BC | LOC: M SFHCPLAZ 09:16 | PROVIDERS: ATTEND Family Medicine | DX: R74.0 Nonspecific elevation of levels of transaminase and lactic acid dehydrogenase [LDH] (principal); E11.65 Type 2 diabetes mellitus with hyperglycemia ==

== ENCOUNTER → 2016-11-01 | Outpatient (REF) | payer BC ==
[2016-11-01 13:10] LABS: BASO # 0.1 K/mm3 (0.0-0.2); BASO % 0.6 % (0.0-1.0); EOS # 0.2 K/mm3 (0.0-0.50); EOS % 2.5 % (0.0-3.0); LARGE UNSTAINED CELL # 0.1 K/mm3 (0.0-0.4); LYMPH # 2.4 K/mm3 (1.5-4.5); LYMPH % 23.3 % (24.0-44.0); MEAN CORPUSCULAR HEMOGLOBIN 32.5 pg (27.0-33.0); MEAN CORPUSCULAR HGB CONC 33.6 g/dl (32.0-36.5); MEAN CORPUSCULAR VOLUME 96.8 fl (80.0-96.0); MONO # 0.7 K/mm3 (0.0-0.8); MONO % 7.4 % (0.0-5.0); NEUTROPHILS # 6.5 K/mm3 (1.8-7.7); NEUTROPHILS % 65.2 % (36.0-66.0); PLATELET COUNT, AUTOMATED 153 k/mm3 (150-450); WHITE BLOOD COUNT 9.9 K/mm3 (4.0-10.0)
[2016-11-01 13:22] LABS: ALBUMIN 4.1 GM/DL (3.2-5.2); ALBUMIN/GLOBULIN RATIO 1.28 (1.00-1.93); ALKALINE PHOSPHATASE 112 U/L (45-117); ALT/SGPT 65 U/L (12-78); ANION GAP 12 MEQ/L (8-16); AST/SGOT 68 U/L (15-37); BILIRUBIN,TOTAL 0.7 MG/DL (0.2-1.0); BLOOD UREA NITROGEN 11 MG/DL (7-18); CALCIUM LEVEL 8.9 MG/DL (8.5-10.1); CARBON DIOXIDE LEVEL 23 MEQ/L (21-32); CHLORIDE LEVEL 108 MEQ/L (98-107); CHOLESTEROL LEVEL 137 MG/DL (<200); CREATININE FOR GFR 0.95 MG/DL (0.70-1.30); GLOMERULAR FILTRATION RATE > 60.0 (>56); GLUCOSE, FASTING 102 MG/DL (70-105); SODIUM LEVEL 143 MEQ/L (136-145); TOTAL PROTEIN 7.3 GM/DL (6.4-8.2); TRIGLYCERIDES LEVEL 156 MG/DL (<150)
== END ==
LOC: M SFHCPLAZ 08:08
PROVIDERS: ATTEND Physician Assistant Medical
DX: K21.9 Gastro-esophageal reflux disease without esophagitis (principal); R73.01 Impaired fasting glucose; E78.2 Mixed hyperlipidemia; E55.9 Vitamin D deficiency, unspecified

== ENCOUNTER → 2016-11-15 | Outpatient (REF) | payer BC ==
[~2016-11-15] MED LIST changes: +JANU50TA4 PO
== END ==
LOC: M SFHCPLAZ 11:29
PROVIDERS: ATTEND Family Medicine
DX: M31.6 Other giant cell arteritis (principal)

== ENCOUNTER 2016-11-16 09:11 | Outpatient (CLI) | payer BC ==
[~2016-11-16] VITALS: Ht 165.1 cm; Wt 98.2 kg
[~2016-11-16 09:11] MED LIST changes: -JANU50TA4 PO
[2016-11-16] MEDS ORDERED: methylPREDNISolone 1,000 MG, VIAL MATE ADAPTER 1 EACH in D5W 250 ML IV ONE (09:30)
== END 2016-11-16 11:15 | disposition home or self-care (01) ==
LOC: M INFU 09:11
PROVIDERS: ATTEND Family Medicine
DX: H40.9 Unspecified glaucoma (principal); Z88.8 Allergy status to other drugs, medicaments and biological substances; Z79.82 Long term (current) use of aspirin; Z79.899 Other long term (current) drug therapy
CPT/HCPCS: 96365; J2930

== ENCOUNTER 2016-11-17 12:55 | Outpatient (CLI) | payer BC ==
[2016-11-17 13:10] VITALS: BP 134/67
[2016-11-17] MEDS ORDERED: methylPREDNISolone 1,000 MG, VIAL MATE ADAPTER 1 EACH in D5W 250 ML IV ONE (13:45)
[2016-11-17 15:30] VITALS: BP 141/78
[2016-11-18] MEDS ORDERED: JANU50TA4 PO (11:10)
== END 2016-11-17 15:40 | disposition home or self-care (01) ==
LOC: M OPCLIPED 12:55 → M PED 12:56 → M OPCLIPED 15:40
PROVIDERS: ATTEND Family Medicine
DX: H40.9 Unspecified glaucoma (principal); Z88.8 Allergy status to other drugs, medicaments and biological substances; Z79.82 Long term (current) use of aspirin; Z79.899 Other long term (current) drug therapy
CPT/HCPCS: 96365; J2930

== ENCOUNTER 2016-11-18 10:06 | Outpatient (CLI) | payer BC ==
[~2016-11-18] VITALS: Ht 165.1 cm; Wt 98.0 kg
[2016-11-18 10:27] VITALS: BP 125/63
[2016-11-18] MEDS ORDERED: methylPREDNISolone 1,000 MG, VIAL MATE ADAPTER 1 EACH in D5W 250 ML IV ONE (11:00)
[2016-11-18] MEDS ORDERED: JANU50TA4 PO (11:10)
[2016-11-18 12:20] VITALS: BP 137/73
== END 2016-11-18 12:20 | disposition home or self-care (01) ==
LOC: M OPCLIPED 10:06 → M PED 10:08 → M OPCLIPED 12:20
PROVIDERS: ATTEND Family Medicine
DX: H40.9 Unspecified glaucoma (principal); Z88.8 Allergy status to other drugs, medicaments and biological substances; Z79.82 Long term (current) use of aspirin; Z79.899 Other long term (current) drug therapy
CPT/HCPCS: 96365; J2930

== ENCOUNTER → 2016-11-22 | Outpatient (REF) | payer BC ==
[~2016-11-22] MED LIST changes: +JANU50TA4 PO
== END ==
LOC: M SFHCPLAZ 13:57
PROVIDERS: ATTEND Family Medicine
DX: M31.6 Other giant cell arteritis (principal)

== ENCOUNTER → 2016-12-27 | Outpatient (REF) | payer BC ==
[~2016-12-27] MED LIST changes: +NORC1TAB4 PO; -NORC5TAB PO
[2016-12-27 14:26] LABS: BASO % 0.5 % (0.0-1.0); EOS # 0.1 K/mm3 (0.0-0.50); EOS % 1.4 % (0.0-3.0); LARGE UNSTAINED CELL # 0.1 K/mm3 (0.0-0.4); LYMPH # 2.2 K/mm3 (1.5-4.5); LYMPH % 23.6 % (24.0-44.0); MEAN CORPUSCULAR HEMOGLOBIN 32.3 pg (27.0-33.0); MEAN CORPUSCULAR HGB CONC 33.8 g/dl (32.0-36.5); MEAN CORPUSCULAR VOLUME 95.5 fl (80.0-96.0); MONO # 0.7 K/mm3 (0.0-0.8); MONO % 7.9 % (0.0-5.0); NEUTROPHILS % 65.6 % (36.0-66.0); PLATELET COUNT, AUTOMATED 157 k/mm3 (150-450); RED CELL DISTRIBUTION WIDTH 13.3 % (11.5-14.5); WHITE BLOOD COUNT 9.1 K/mm3 (4.0-10.0)
[2016-12-27 14:29] LABS: ALBUMIN 4.1 GM/DL (3.2-5.2); ALBUMIN/GLOBULIN RATIO 1.37 (1.00-1.93); ALKALINE PHOSPHATASE 85 U/L (45-117); ALT/SGPT 67 U/L (12-78); ANION GAP 8 MEQ/L (8-16); AST/SGOT 47 U/L (15-37); BILIRUBIN,TOTAL 0.5 MG/DL (0.2-1.0); BLOOD UREA NITROGEN 13 MG/DL (7-18); CALCIUM LEVEL 8.9 MG/DL (8.5-10.1); CARBON DIOXIDE LEVEL 22 MEQ/L (21-32); CHLORIDE LEVEL 112 MEQ/L (98-107); CREATININE FOR GFR 0.81 MG/DL (0.70-1.30); GLOMERULAR FILTRATION RATE > 60.0 (>56); GLUCOSE, FASTING 100 MG/DL (70-105); POTASSIUM SERUM 4.4 MEQ/L (3.5-5.1); SODIUM LEVEL 142 MEQ/L (136-145); TOTAL PROTEIN 7.1 GM/DL (6.4-8.2)
[2016-12-27 14:35] LABS: FOLATE > 24.0 NG/ML (>5.4); VITAMIN B12 LEVEL 681 PG/ML (247-911)
[2016-12-27 14:36] LABS: ERYTHROCYTE SEDIMENTATION RATE 17 mm/hr (0-20)
== END ==
LOC: M LABNEURO 13:14
PROVIDERS: ATTEND Psychiatry & Neurology Neurology
DX: R51 Headache (principal)

== ENCOUNTER → 2017-01-03 | Outpatient (REF) | payer BC ==
[2017-01-03 11:08] LABS: CHOLESTEROL LEVEL 142 MG/DL (<200); TRIGLYCERIDES LEVEL 136 MG/DL (<150)
== END ==
LOC: M SFHCPLAZ 09:15
PROVIDERS: ATTEND Family Medicine
DX: Z87.39 Personal history of other diseases of the musculoskeletal system and connective tissue (principal); E78.2 Mixed hyperlipidemia

== ENCOUNTER → 2017-01-09 | Outpatient (CLI) | payer BC ==
--- NOTE | 2017-01-09 08:57 | REP ---
CT BRAIN WITHOUT CONTRAST: 01/09/2017. Comparison: 12/18/2011 CT. Clinical history: Migraines. Findings: Soft tissue and bone windows are reviewed for each slice level with no ventriculomegaly, atrophy, intracranial hemorrhage or mass. The ganglia symmetric and grossly normal. Jang white junction differentiation is well maintained. There is no vascular territory infarct, old lacunar infarct or extra-axial fluid collection. Brainstem and cerebellum grossly intact. Basal cisterns intact. Mastoids, visualized sinuses, skull base and calvarium are without focal abnormality. There are a few calcifications in the carotid siphons. Impression: 1. Negative CT brain for intracranial hemorrhage, edema, infarct, mass or other acute finding. Signed by Brennan Gonzalez MD 01/09/2017 08:59 A
== END ==
LOC: M RAD 08:04
PROVIDERS: ATTEND Psychiatry & Neurology Neurology
DX: G43.009 Migraine without aura, not intractable, without status migrainosus (principal); G44.221 Chronic tension-type headache, intractable

== ENCOUNTER 2017-09-18 17:39 | Inpatient (IN) | payer BC ==
[2017-09-18] MEDS: NS 1,000 ML IV (18:15)
[2017-09-18 18:31] LABS: KETONE, URINE AUTO RFX NEGATIVE (NEGATIVE); LEUKOCYTE ESTERASE UR AUTO RFX NEGATIVE (NEGATIVE); NITRITE, URINE AUTO RFX NEGATIVE (NEGATIVE); RBC, URINE AUTO RFX 1 /HPF (0-3); SPECIFIC GRAVITY UR AUTO RFX 1.006 (1.002-1.035); SQUAM EPITHELIAL CELL UR AURFX 0 /HPF (0-6); WBC, URINE AUTO RFX 1 /HPF (0-3)
[2017-09-18 18:43] LABS: BASO % 0.2 % (0.0-1.0); EOS # 0.1 10^3/uL (0.0-0.50); EOS % 0.6 % (0.0-3.0); HEMATOCRIT 45.5 % (42.0-52.0); HEMOGLOBIN 15.8 g/dl (14.0-18.0); IMMATURE GRANULOCYTE # 0.1 10^3/uL (0-0); IMMATURE GRANULOCYTE % 0.4 % (0-0); LYMPH # 2.9 10^3/uL (1.5-4.5); LYMPH % 17.3 % (24.0-44.0); MEAN CORPUSCULAR HEMOGLOBIN 32.6 pg (27.0-33.0); MEAN CORPUSCULAR HGB CONC 34.7 g/dl (32.0-36.5); MEAN CORPUSCULAR VOLUME 93.8 fl (80.0-96.0); MONO # 1.6 10^3/uL (0.0-0.8); MONO % 9.6 % (0.0-5.0); NEUTROPHILS # 11.8 10^3/uL (1.8-7.7); NEUTROPHILS % 71.9 % (36.0-66.0); PLATELET COUNT, AUTOMATED 164 10^3/uL (150-450); RED BLOOD COUNT 4.85 10^6/uL (4.30-6.10); RED CELL DISTRIBUTION WIDTH 12.7 % (11.5-14.5); WHITE BLOOD COUNT 16.5 10^3/uL (4.0-10.0)
[2017-09-18 19:08] LABS: ALBUMIN 4.4 GM/DL (3.2-5.2); ALBUMIN/GLOBULIN RATIO 1.47 (1.00-1.93); ALKALINE PHOSPHATASE 76 U/L (45-117); ALT/SGPT 47 U/L (12-78); ANION GAP 8 MEQ/L (8-16); AST/SGOT 30 U/L (7-37); BILIRUBIN,DIRECT 0.2 MG/DL (0.0-0.2); BILIRUBIN,TOTAL 0.6 MG/DL (0.2-1.0); BLOOD UREA NITROGEN 9 MG/DL (7-18); CALCIUM LEVEL 9.2 MG/DL (8.5-10.1); CARBON DIOXIDE LEVEL 24 MEQ/L (21-32); CHLORIDE LEVEL 111 MEQ/L (98-107); CREATININE FOR GFR 0.84 MG/DL (0.70-1.30); GLOMERULAR FILTRATION RATE > 60.0 (>56); GLUCOSE, FASTING 109 MG/DL (70-100); LIPASE 338 U/L (73-393); POTASSIUM SERUM 3.8 MEQ/L (3.5-5.1); SODIUM LEVEL 143 MEQ/L (136-145); TOTAL PROTEIN 7.4 GM/DL (6.4-8.2)
[2017-09-18] MEDS: GASTROGRAFIN SOLUTION 30ML PO ×2 (20:00→20:17)
[2017-09-18 21:19] LABS: BEDSIDE GLUCOSE 101 MG/DL (70-105)
[2017-09-18] MEDS ORDERED: ISOVUE-370 76% 100ML VIAL (Q9967) As Ordered (21:24)
[2017-09-18] MEDS: metroNIDAZOLE 500 MG in APPROPRIATE DILUENT 1 EA IV (23:03)
[2017-09-18] MEDS: ONDANSETRON 4MG/2ML VIAL (J2405) IV (23:03)
[2017-09-18] MEDS: MORPHINE 4 MG/ML 1ML SYRINGE IV (23:04)
[2017-09-18] MEDS ORDERED: MORPHINE 2 MG/ML 1ML SYRINGE IV (23:15)
[2017-09-19] MEDS ORDERED: DEXTROSE 50% 50 ML SYRINGE IV
[2017-09-19] MEDS ORDERED: GLUCAGON FOR INJ 1 MG VIAL (J1610) SC
[2017-09-19] MEDS ORDERED: GLUCOSE 4 GM CHEW TABLET PO
[2017-09-19] MEDS: CIPROFLOXACIN 400 MG in APPROPRIATE DILUENT 1 EA IV ×2 (00:22→13:37)
[2017-09-19] MEDS: PERCOCET 5MG/325MG TAB PO ×4 (01:15→21:16)
[2017-09-19] MEDS: NS 1,000 ML IV (01:15)
[2017-09-19] MEDS: ACETAMINOPHEN TAB 650MG DOSE (2X325MG) PO (06:31)
[2017-09-19 07:07] LABS: BASO % 0.2 % (0.0-1.0); EOS # 0.1 10^3/uL (0.0-0.50); EOS % 0.6 % (0.0-3.0); HEMATOCRIT 40.1 % (42.0-52.0); IMMATURE GRANULOCYTE # 0.1 10^3/uL (0-0); IMMATURE GRANULOCYTE % 0.5 % (0-0); LYMPH # 2.8 10^3/uL (1.5-4.5); LYMPH % 21.5 % (24.0-44.0); MEAN CORPUSCULAR HEMOGLOBIN 32.5 pg (27.0-33.0); MEAN CORPUSCULAR HGB CONC 34.4 g/dl (32.0-36.5); MEAN CORPUSCULAR VOLUME 94.4 fl (80.0-96.0); MONO # 1.5 10^3/uL (0.0-0.8); MONO % 11.5 % (0.0-5.0); NEUTROPHILS # 8.7 10^3/uL (1.8-7.7); NEUTROPHILS % 65.7 % (36.0-66.0); PLATELET COUNT, AUTOMATED 130 10^3/uL (150-450); RED BLOOD COUNT 4.25 10^6/uL (4.30-6.10); RED CELL DISTRIBUTION WIDTH 12.9 % (11.5-14.5); WHITE BLOOD COUNT 13.2 10^3/uL (4.0-10.0)
[2017-09-19 07:13] LABS: HEMOGLOBIN 13.8 g/dl (14.0-18.0)
[2017-09-19 07:18] LABS: ANION GAP 5 MEQ/L (8-16); BLOOD UREA NITROGEN 8 MG/DL (7-18); CALCIUM LEVEL 8.3 MG/DL (8.5-10.1); CARBON DIOXIDE LEVEL 27 MEQ/L (21-32); CHLORIDE LEVEL 112 MEQ/L (98-107); CHOLESTEROL LEVEL 115 MG/DL (<200); CHOLESTEROL RISK RATIO 3.026 (<5); CREATININE FOR GFR 0.94 MG/DL (0.70-1.30); GLOMERULAR FILTRATION RATE > 60.0 (>56); GLUCOSE, FASTING 95 MG/DL (70-100); HDL CHOLESTEROL 38 MG/DL (>40); LDL CHOLESTEROL 53.8 MG/DL (<100); NON-HDL-C 77 MG/DL; POTASSIUM SERUM 4.1 MEQ/L (3.5-5.1); SODIUM LEVEL 144 MEQ/L (136-145); TRIGLYCERIDES LEVEL 116 MG/DL (<150)
[2017-09-19 07:20] LABS: ESTIMATED AVERAGE GLUCOSE 111 MG/DL (60-110); HEMOGLOBIN A1c 5.5 %
[2017-09-19] MEDS: HumaLOG INSULIN (NovoLOG) PER UNIT SC ×4 (07:30→21:00)
[2017-09-19] MEDS: metroNIDAZOLE 500 MG in APPROPRIATE DILUENT 1 EA IV ×3 (08:24→23:09)
[2017-09-19] MEDS: ENOXAPARIN 40 MG/0.4 ML SYRINGE (J1650) SC (08:25)
[2017-09-19 11:57] LABS: BEDSIDE GLUCOSE 136 MG/DL (70-105)
[2017-09-19] MEDS ORDERED: METAXALONE 800 MG TABLET PO (13:30)
[2017-09-19] MEDS: FEXOFENADINE 60 MG TAB PO (16:45)
[2017-09-19] MEDS: MULTIVITAMINS/MINERALS THERAP 1 TAB PO (16:46)
[2017-09-19] MEDS: ROSUVASTATIN 10 MG TAB (CRESTOR) PO (18:37)
[2017-09-19] MEDS: TOPIRAMATE (TopAMAX) 100 MG TAB PO (18:37)
[2017-09-19] MEDS: FLUTICASONE PROP 0.05% NASAL SPRAY 16 GM (FLONASE) (21:14)
[2017-09-19] MEDS: OMEGA-3 1050MG CAPSULE PO (21:14)
[2017-09-19] MEDS: OMEPRAZOLE 20 MG CAP PO (21:14)
[2017-09-19] MEDS: MECLIZINE 25 MG TABLET PO (21:15)
[2017-09-19] MEDS: VERAPAMIL 80 MG TAB PO (21:15)
[2017-09-20] MEDS: CIPROFLOXACIN 400 MG in APPROPRIATE DILUENT 1 EA IV (00:42)
[2017-09-20] MEDS: PERCOCET 5MG/325MG TAB PO ×3 (02:27→12:51)
[2017-09-20 05:49] LABS: BEDSIDE GLUCOSE 233 MG/DL (70-105)
[2017-09-20 05:49] LABS: BEDSIDE GLUCOSE 93 MG/DL (70-105)
[2017-09-20 06:52] LABS: BASO % 0.2 % (0.0-1.0); EOS # 0.2 10^3/uL (0.0-0.50); EOS % 1.7 % (0.0-3.0); HEMATOCRIT 38.7 % (42.0-52.0); HEMOGLOBIN 13.3 g/dl (14.0-18.0); IMMATURE GRANULOCYTE % 0.3 % (0-0); LYMPH # 2.1 10^3/uL (1.5-4.5); LYMPH % 22.7 % (24.0-44.0); MEAN CORPUSCULAR HEMOGLOBIN 32.8 pg (27.0-33.0); MEAN CORPUSCULAR HGB CONC 34.4 g/dl (32.0-36.5); MEAN CORPUSCULAR VOLUME 95.6 fl (80.0-96.0); MONO # 0.9 10^3/uL (0.0-0.8); MONO % 10.2 % (0.0-5.0); NEUTROPHILS % 64.9 % (36.0-66.0); PLATELET COUNT, AUTOMATED 125 10^3/uL (150-450); RED BLOOD COUNT 4.05 10^6/uL (4.30-6.10); RED CELL DISTRIBUTION WIDTH 12.7 % (11.5-14.5); WHITE BLOOD COUNT 9.3 10^3/uL (4.0-10.0)
[2017-09-20 07:12] LABS: ANION GAP 7 MEQ/L (8-16); BLOOD UREA NITROGEN 9 MG/DL (7-18); C REACTIVE PROTEIN QUANTITATIV 9.98 MG/DL (0.00-0.30); CALCIUM LEVEL 8.4 MG/DL (8.5-10.1); CARBON DIOXIDE LEVEL 25 MEQ/L (21-32); CHLORIDE LEVEL 112 MEQ/L (98-107); CREATININE FOR GFR 0.79 MG/DL (0.70-1.30); GLOMERULAR FILTRATION RATE > 60.0 (>56); GLUCOSE, FASTING 95 MG/DL (70-100); POTASSIUM SERUM 3.8 MEQ/L (3.5-5.1); SODIUM LEVEL 144 MEQ/L (136-145)
[2017-09-20] MEDS: HumaLOG INSULIN (NovoLOG) PER UNIT SC ×2 (07:35→11:49)
[2017-09-20] MEDS: OMEPRAZOLE 20 MG CAP PO (08:04)
[2017-09-20] MEDS: FEXOFENADINE 60 MG TAB PO (08:04)
[2017-09-20] MEDS: ENOXAPARIN 40 MG/0.4 ML SYRINGE (J1650) SC (08:04)
[2017-09-20] MEDS: metroNIDAZOLE 500 MG in APPROPRIATE DILUENT 1 EA IV (08:04)
[2017-09-20] MEDS: OMEGA-3 1050MG CAPSULE PO (08:04)
[2017-09-20] MEDS: MULTIVITAMINS/MINERALS THERAP 1 TAB PO (08:04)
[2017-09-20] MEDS: VERAPAMIL 80 MG TAB PO (08:04)
[2017-09-20] MEDS: FLUTICASONE PROP 0.05% NASAL SPRAY 16 GM (FLONASE) (08:05)
[2017-09-20] MEDS: CIPROFLOXACIN 500 MG TAB PO (09:54)
[2017-09-20] MEDS: metroNIDAZOLE (FLAGYL) 500 MG TAB PO (14:10)
[2017-09-23 02:19] LABS: BEDSIDE GLUCOSE 96 MG/DL (70-105)
== END 2017-09-20 17:15 | disposition home or self-care (01) | DRG 244 ==
LOC: M MS5PR 09-19 14:33 → M ED 17:39 → M ED INP 23:03
DX: K57.32 Diverticulitis of large intestine without perforation or abscess without bleeding (principal); I11.0 Hypertensive heart disease with heart failure; R65.10 Systemic inflammatory response syndrome (SIRS) of non-infectious origin without acute organ dysfunction; I50.22 Chronic systolic (congestive) heart failure; J30.9 Allergic rhinitis, unspecified; G43.909 Migraine, unspecified, not intractable, without status migrainosus; F17.210 Nicotine dependence, cigarettes, uncomplicated; E78.5 Hyperlipidemia, unspecified; K21.9 Gastro-esophageal reflux disease without esophagitis; Z97.4 Presence of external hearing-aid; Z88.8 Allergy status to other drugs, medicaments and biological substances; Z98.52 Vasectomy status; Z99.89 Dependence on other enabling machines and devices; Z98.1 Arthrodesis status; Z79.84 Long term (current) use of oral hypoglycemic drugs; Z79.899 Other long term (current) drug therapy

== ENCOUNTER → 2017-10-26 | Outpatient (CLI) | payer BC ==
[2017-10-26 13:03] LABS: BASO # 0.1 10^3/uL (0.0-0.2); BASO % 0.5 % (0.0-1.0); EOS # 0.2 10^3/uL (0.0-0.50); EOS % 2.1 % (0.0-3.0); HEMOGLOBIN 14.9 g/dl (14.0-18.0); IMMATURE GRANULOCYTE % 0.2 % (0-3.0); LYMPH # 2.9 10^3/uL (1.5-4.5); MEAN CORPUSCULAR HEMOGLOBIN 32.5 pg (27.0-33.0); MEAN CORPUSCULAR HGB CONC 34.7 g/dl (32.0-36.5); MEAN CORPUSCULAR VOLUME 93.9 fl (80.0-96.0); MONO # 0.7 10^3/uL (0.0-0.8); MONO % 7.6 % (0.0-5.0); NEUTROPHILS # 5.4 10^3/uL (1.8-7.7); NEUTROPHILS % 58.6 % (36.0-66.0); PLATELET COUNT, AUTOMATED 196 10^3/uL (150-450); RED BLOOD COUNT 4.58 10^6/uL (4.30-6.10); WHITE BLOOD COUNT 9.2 10^3/uL (4.0-10.0)
[2017-10-26 13:32] LABS: ALBUMIN 4.1 GM/DL (3.2-5.2); ALBUMIN/GLOBULIN RATIO 1.37 (1.00-1.93); ALKALINE PHOSPHATASE 72 U/L (45-117); ALT/SGPT 40 U/L (12-78); ANION GAP 5 MEQ/L (8-16); AST/SGOT 19 U/L (7-37); BILIRUBIN,TOTAL 0.4 MG/DL (0.2-1.0); BLOOD UREA NITROGEN 11 MG/DL (7-18); CALCIUM LEVEL 8.8 MG/DL (8.5-10.1); CARBON DIOXIDE LEVEL 26 MEQ/L (21-32); CHLORIDE LEVEL 113 MEQ/L (98-107); CREATININE FOR GFR 0.86 MG/DL (0.70-1.30); GLOMERULAR FILTRATION RATE > 60.0 (>56); GLUCOSE, FASTING 81 MG/DL (70-100); POTASSIUM SERUM 4.3 MEQ/L (3.5-5.1); SODIUM LEVEL 144 MEQ/L (136-145); TOTAL PROTEIN 7.1 GM/DL (6.4-8.2)
== END ==
LOC: M LAB 12:41
DX: N20.0 Calculus of kidney (principal)
CPT/HCPCS: 76775

== ENCOUNTER → 2017-10-26 | Outpatient (REF) | payer BC | LOC: M SFHCPLAZ 15:39 | DX: R31.9 Hematuria, unspecified (principal) | CPT/HCPCS: 87086 ==

== ENCOUNTER → 2017-11-14 | Outpatient (CLI) | payer BC ==
[2017-11-14 16:52] LABS: INR 0.94; PROTHROMBIN TIME 12.6 SECONDS (12.4-14.5)
[2017-11-14 16:53] LABS: PARTIAL THROMBOPLASTIN TIME 35.3 SECONDS (26.8-37.9)
[2017-11-14 17:10] LABS: ANION GAP 8 MEQ/L (8-16); BLOOD UREA NITROGEN 9 MG/DL (7-18); CARBON DIOXIDE LEVEL 23 MEQ/L (21-32); CHLORIDE LEVEL 113 MEQ/L (98-107); CHOLESTEROL LEVEL 139 MG/DL (<200); CHOLESTEROL RISK RATIO 3.657 (<5); CREATININE FOR GFR 0.84 MG/DL (0.70-1.30); GLOMERULAR FILTRATION RATE > 60.0 (>56); GLUCOSE, FASTING 87 MG/DL (70-100); HDL CHOLESTEROL 38 MG/DL (>40); LDL CHOLESTEROL 80.8 MG/DL (<100); NON-HDL-C 101 MG/DL; POTASSIUM SERUM 4.1 MEQ/L (3.5-5.1); SODIUM LEVEL 144 MEQ/L (136-145); TRIGLYCERIDES LEVEL 101 MG/DL (<150)
[2017-11-14 17:41] LABS: PSA SCREENING 1.17 NG/ML (< 4.0)
[2017-11-14 17:50] LABS: MAU/CREAT RATIO 166.4 MCG/MG (0.0-30.0)
[2017-11-14 19:20] LABS: ESTIMATED AVERAGE GLUCOSE 103 MG/DL (60-110); HEMOGLOBIN A1c 5.2 %
== END ==
LOC: M LAB 16:05
DX: R31.0 Gross hematuria (principal); Z01.818 Encounter for other preprocedural examination; N20.0 Calculus of kidney; Z12.5 Encounter for screening for malignant neoplasm of prostate
CPT/HCPCS: 71046

== ENCOUNTER 2017-11-16 10:26 | Day surgery (SDC) | payer BC ==
[2017-11-16 11:04] LABS: BEDSIDE GLUCOSE 106 MG/DL (70-105)
[2017-11-16] MEDS ORDERED: KETOROLAC 60 MG/2 ML VIAL (J1885) As Ordered ×2 (12:20)
[2017-11-16] MEDS ORDERED: dexameTHASONE 4 MG/ML 1ML VIAL (J1100) As Ordered ×2 (12:20)
[2017-11-16] MEDS ORDERED: LIDOCAINE 2% INJ 100 MG/5 ML SDV (FOR ANES.) As Ordered ×2 (12:20)
[2017-11-16] MEDS ORDERED: MIDAZOLAM INJ 2 MG/2 ML VIAL (J2250) As Ordered ×2 (12:20)
[2017-11-16] MEDS ORDERED: PROPOFOL 200 MG/20 ML VIAL As Ordered ×2 (12:20)
[2017-11-16] MEDS ORDERED: NEOSTIGMINE 10 MG/10 ML VIAL (J2710) As Ordered ×2 (12:20)
[2017-11-16] MEDS ORDERED: GLYCOPYRROLATE INJ 0.2 MG/ML 2 ML VIAL As Ordered ×2 (12:20)
[2017-11-16] MEDS ORDERED: ROCURONIUM BROMIDE 50 MG/5 ML VIAL As Ordered ×2 (12:20)
[2017-11-16] MEDS ORDERED: ONDANSETRON 4MG/2ML VIAL (J2405) As Ordered ×2 (12:20)
[2017-11-16] MEDS ORDERED: fentaNYL 100 MCG/2 ML INJECTION (J3010) As Ordered ×4 (12:21→14:10)
[2017-11-16] MEDS: CONRAY-60 60% 50ML VIAL (Q9961) As Ordered ×2 (13:39)
[2017-11-16] MEDS ORDERED: LR 1,000 ML IV ×2 (15:30)
[2017-11-16] MEDS ORDERED: PERCOCET 5MG/325MG TAB PO ×6 (15:30→15:45)
[2017-11-16] MEDS ORDERED: fentaNYL 100 MCG/2 ML INJECTION (J3010) IV ×2 (15:30)
[2017-11-16] MEDS ORDERED: ONDANSETRON 4MG/2ML VIAL (J2405) IV ×2 (15:30)
[2017-11-16] MEDS ORDERED: HYDROmorphone HCL 1 MG/ML SYRINGE (J1170) IV ×2 (15:30)
[2017-11-16 15:32] LABS: BEDSIDE GLUCOSE 108 MG/DL (70-105)
== END 2017-11-16 16:52 | disposition home or self-care (01) ==
LOC: M SDC 10:26
DX: N20.0 Calculus of kidney (principal); R31.0 Gross hematuria; E10.9 Type 1 diabetes mellitus without complications; Z79.4 Long term (current) use of insulin; E78.5 Hyperlipidemia, unspecified; K44.9 Diaphragmatic hernia without obstruction or gangrene; F17.210 Nicotine dependence, cigarettes, uncomplicated; Z79.82 Long term (current) use of aspirin; Z79.899 Other long term (current) drug therapy; Z88.1 Allergy status to other antibiotic agents; K21.9 Gastro-esophageal reflux disease without esophagitis
CPT/HCPCS: 52356

== ENCOUNTER → 2018-02-11 | Outpatient (CLI) | payer BC ==
[2018-02-11 13:34] LABS: TOTAL 25(OH) VITAMIN D 30.8 NG/ML (30.0-100.0)
[2018-02-11 14:29] LABS: ALBUMIN 3.8 GM/DL (3.2-5.2); ALBUMIN/GLOBULIN RATIO 1.23 (1.00-1.93); ALKALINE PHOSPHATASE 110 U/L (45-117); ALT/SGPT 101 U/L (12-78); ANION GAP 8 MEQ/L (8-16); AST/SGOT 42 U/L (7-37); BILIRUBIN,TOTAL 0.4 MG/DL (0.2-1.0); BLOOD UREA NITROGEN 11 MG/DL (7-18); CALCIUM LEVEL 8.7 MG/DL (8.5-10.1); CARBON DIOXIDE LEVEL 24 MEQ/L (21-32); CHLORIDE LEVEL 111 MEQ/L (98-107); CHOLESTEROL LEVEL 160 MG/DL (<200); CHOLESTEROL RISK RATIO 4.444 (<5); CREATININE FOR GFR 0.91 MG/DL (0.70-1.30); GLOMERULAR FILTRATION RATE > 60.0 (>56); GLUCOSE, FASTING 136 MG/DL (70-100); HDL CHOLESTEROL 36 MG/DL (>40); NON-HDL-C 124 MG/DL; POTASSIUM SERUM 4.4 MEQ/L (3.5-5.1); SODIUM LEVEL 143 MEQ/L (136-145); TOTAL PROTEIN 6.9 GM/DL (6.4-8.2); TRIGLYCERIDES LEVEL 160 MG/DL (<150)
[2018-02-11 15:31] LABS: MALB URINE SIEMENS 22.7 MG/L; MAU/CREAT RATIO 8.4 MCG/MG (0.0-30.0)
[2018-02-11 16:18] LABS: ESTIMATED AVERAGE GLUCOSE 117 MG/DL (60-110); HEMOGLOBIN A1c 5.7 %
== END ==
LOC: M WUC 09:48
DX: K76.0 Fatty (change of) liver, not elsewhere classified (principal); E11.29 Type 2 diabetes mellitus with other diabetic kidney complication; E55.9 Vitamin D deficiency, unspecified
CPT/HCPCS: 80053

== ENCOUNTER 2018-02-23 08:27 | Emergency (ER) | payer BC ==
[2018-02-23 08:45] LABS: BASO % 0.3 % (0.0-1.0); EOS # 0.2 10^3/uL (0.0-0.50); EOS % 1.3 % (0.0-3.0); HEMATOCRIT 43.5 % (42.0-52.0); HEMOGLOBIN 15.1 g/dl (13.5-17.5); IMMATURE GRANULOCYTE % 0.4 % (0-3.0); LYMPH % 15.3 % (24.0-44.0); MEAN CORPUSCULAR HGB CONC 34.7 g/dl (32.0-36.5); MONO % 7.9 % (0.0-5.0); NEUTROPHILS # 9.8 10^3/uL (1.8-7.7); NEUTROPHILS % 74.8 % (36.0-66.0); PLATELET COUNT, AUTOMATED 182 10^3/uL (150-450); RED BLOOD COUNT 4.58 10^6/uL (4.30-6.10); RED CELL DISTRIBUTION WIDTH 13.1 % (11.5-14.5); WHITE BLOOD COUNT 13.1 10^3/uL (4.0-10.0)
[2018-02-23] MEDS: KETOROLAC 30 MG/ML VIAL (J1885) IV (08:52)
[2018-02-23] MEDS: GASTROGRAFIN SOLUTION 30ML PO ×2 (08:53→09:15)
[2018-02-23] MEDS: NS 1,000 ML IV (08:54)
[2018-02-23 08:57] LABS: APPEARANCE, URINE CLEAR (CLEAR); BACTERIA, URINE AUTO NEGATIVE (NEGATIVE); BILIRUBIN, URINE AUTO NEGATIVE (NEGATIVE); BLOOD, URINE BLOOD NEGATIVE (NEGATIVE); COLOR, URINE YELLOW (YELLOW); GLUCOSE, URINE (UA) AUTO NEGATIVE (NEGATIVE); KETONE, URINE AUTO NEGATIVE (NEGATIVE); LEUKOCYTE ESTERASE, URINE AUTO NEGATIVE (NEGATIVE); MUCUS, URINE SMALL (NEGATIVE); NITRITE, URINE AUTO NEGATIVE (NEGATIVE); PROTEIN, URINE AUTO NEGATIVE (NEGATIVE); RBC, URINE AUTO 0 /HPF (0-3); SPECIFIC GRAVITY URINE AUTO 1.015 (1.002-1.035); SQUAMOUS EPITHELIAL CELL UR AU 0 /HPF (0-6); WBC, URINE AUTO 0 /HPF (0-3)
[2018-02-23 09:13] LABS: ALBUMIN 3.8 GM/DL (3.2-5.2); ALBUMIN/GLOBULIN RATIO 1.31 (1.00-1.93); ALKALINE PHOSPHATASE 100 U/L (45-117); ALT/SGPT 121 U/L (12-78); AMYLASE 90 U/L (25-115); ANION GAP 7 MEQ/L (8-16); AST/SGOT 65 U/L (7-37); BILIRUBIN,DIRECT 0.1 MG/DL (0.0-0.2); BILIRUBIN,TOTAL 0.4 MG/DL (0.2-1.0); BLOOD UREA NITROGEN 10 MG/DL (7-18); C REACTIVE PROTEIN QUANTITATIV < 0.30 MG/DL (0.00-0.30); CALCIUM LEVEL 8.2 MG/DL (8.5-10.1); CARBON DIOXIDE LEVEL 23 MEQ/L (21-32); CHLORIDE LEVEL 115 MEQ/L (98-107); CREATININE FOR GFR 0.83 MG/DL (0.70-1.30); GLOMERULAR FILTRATION RATE > 60.0 (>56); GLUCOSE, FASTING 108 MG/DL (70-100); LIPASE 442 U/L (73-393); SODIUM LEVEL 145 MEQ/L (136-145); TOTAL PROTEIN 6.7 GM/DL (6.4-8.2)
[2018-02-23] MEDS ORDERED: ISOVUE-370 76% 100ML VIAL (Q9967) As Ordered (10:32)
== END 2018-02-23 11:42 | disposition home or self-care (01) ==
LOC: M ED 08:27
DX: K57.32 Diverticulitis of large intestine without perforation or abscess without bleeding (principal); E78.00 Pure hypercholesterolemia, unspecified; R51 Headache; K21.9 Gastro-esophageal reflux disease without esophagitis; F17.200 Nicotine dependence, unspecified, uncomplicated; Z88.1 Allergy status to other antibiotic agents; Z88.8 Allergy status to other drugs, medicaments and biological substances; Z79.899 Other long term (current) drug therapy; Z79.82 Long term (current) use of aspirin
CPT/HCPCS: Q9963

== ENCOUNTER 2023-01-12 08:53 | Emergency (ER) | payer BC, OTHER ==
[~2023-01-12] VITALS: Ht 165.1 cm; Wt 101.1 kg
[~2023-01-12 08:53] MED LIST changes: +ACET-716 PO; +ALLE180T33 PO; -ASPI81TA85 PO; +ASPI81TA86 PO; -CELE-19 PO; +CELE1CAP4 PO; +CIPR-249 PO; -CIPR500T89 PO; -CRES20TA PO; +CRES20TA2 PO; +DULO1CAP5; +META1TAB22 PO; -MINEOIL3 PO; +MINEOIL60 PO; +NASA1SPR; -NORC1TAB4 PO; +NORC1TAB7 PO; -TOPA200T6 PO; +TOPA200T7 PO; +VERA80TA3 PO; +VICT18IN SC; +ZOFR4TAB14 PO
[2023-01-12 12:42] LABS: BASO % 0.2 % (0.0-1.0); EOS # 0.1 10^3/uL (0.0-0.5); EOS % 0.9 % (0.0-3.0); HEMOGLOBIN 8.9 g/dl (13.5-17.5); LYMPH # 0.9 10^3/uL (1.5-5.0); LYMPH % 11.2 % (24.0-44.0); MEAN CORPUSCULAR HEMOGLOBIN 29.8 pg (27.0-33.0); MEAN CORPUSCULAR HGB CONC 31.8 g/dl (32.0-36.5); MEAN CORPUSCULAR VOLUME 93.6 fl (80.0-96.0); MONO # 1.3 10^3/uL (0.0-0.8); MONO % 16.1 % (2.0-8.0); NEUTROPHILS # 5.8 10^3/uL (1.5-8.5); NEUTROPHILS % 71.2 % (36.0-66.0); PLATELET COUNT, AUTOMATED 214 10^3/uL (150-450); RED BLOOD COUNT 2.99 10^6/uL (4.30-6.10); WHITE BLOOD COUNT 8.1 10^3/uL (4.0-10.0)
[2023-01-12 12:55] LABS: INR 1.09; PROTHROMBIN TIME 14.3 SECONDS (12.5-14.5)
[2023-01-12 12:56] LABS: PARTIAL THROMBOPLASTIN TIME 34.5 SECONDS (24.8-34.2)
[2023-01-12 13:07] LABS: CK-MB VALUE MASS < 1.0 NG/ML (<3.6); LIPASE 47 U/L (12-53)
[2023-01-12 13:08] LABS: ALBUMIN 2.5 G/DL (3.2-5.2); ALKALINE PHOSPHATASE 207 U/L (46-116); ALT/SGPT 86 U/L (7.0-40); AST/SGOT 121 U/L (<34); BILIRUBIN,DIRECT 1.2 MG/DL (<0.4); BLOOD UREA NITROGEN 12 MG/DL (9-23); CARBON DIOXIDE LEVEL 24 MMOL/L (20-31); CHLORIDE LEVEL 103 MMOL/L (98-107); CREATININE FOR GFR 0.91 MG/DL (0.70-1.30); GLOMERULAR FILTRATION RATE > 60.0 (>49); GLUCOSE, FASTING 101 MG/DL (74-106); SODIUM LEVEL 137 MMOL/L (136-145); TOTAL PROTEIN 6.7 G/DL (5.7-8.2)
[2023-01-12 13:12] LABS: CPK CREATINE PHOSPHOKINASE 46 U/L (46-171); MB/CK RELATIVE INDEX 2.17 (< OR =4)
[2023-01-12 13:24] LABS: RSV AMPLIFICATION NEGATIVE (NEGATIVE)
[2023-01-12 15:54] LABS: SOURCE, BODY FLUID ALBUMIN ASCITES
[2023-01-12 15:59] LABS: SOURCE, BODY FLUID GLUCOSE ASCITES
[2023-01-12 16:01] LABS: APPEARANCE, BODY FLUID HAZY (CLEAR); ASCITES FL COLOR PALE YELLOW (COLORLESS); SOURCE, BODY FLUID TOT PROTEIN ASCITES; TOTAL PROTEIN, BODY FLUID < 2.0 G/DL (NOT ESTABLISHED)
[2023-01-12 17:10] LABS: SOURCE, BODY FLUID ASCITES
[2023-01-12 17:45] VITALS: BP 138/66
== END 2023-01-12 17:54 | disposition home or self-care (01) ==
LOC: M ED 08:53
DX: R18.8 Other ascites (principal); Z98.890 Other specified postprocedural states; R00.0 Tachycardia, unspecified; I49.3 Ventricular premature depolarization; I25.2 Old myocardial infarction; E11.9 Type 2 diabetes mellitus without complications; E78.5 Hyperlipidemia, unspecified; F10.10 Alcohol abuse, uncomplicated; Z88.1 Allergy status to other antibiotic agents; Z88.8 Allergy status to other drugs, medicaments and biological substances; Z79.82 Long term (current) use of aspirin; Z79.810 Long term (current) use of selective estrogen receptor modulators (SERMs); Z79.899 Other long term (current) drug therapy

== ENCOUNTER 2024-09-30 02:46 | Emergency (ER) | payer OTHER ==
[~2024-09-30] VITALS: Ht 165.1 cm; Wt 99.8 kg
[~2024-09-30 02:46] MED LIST changes: +META-10 PO; -META1TAB22 PO
[2024-09-30 04:32] LABS: KETONE, URINE AUTO RFX NEGATIVE (NEGATIVE); LEUKOCYTE ESTERASE UR AUTO RFX NEGATIVE (NEGATIVE); MUCUS, URINE RFX SMALL (NEGATIVE); NITRITE, URINE AUTO RFX NEGATIVE (NEGATIVE); RBC, URINE AUTO RFX 2 /HPF (0-3); SQUAM EPITHELIAL CELL UR AURFX 0 /HPF (0-6); WBC, URINE AUTO RFX 3 /HPF (0-3)
[2024-09-30 04:58] LABS: BASO % 0.3 % (0.0-1.0); EOS # 0.1 10^3/uL (0.0-0.5); EOS % 3.5 % (0.0-3.0); HEMATOCRIT 24.2 % (42.0-52.0); HEMOGLOBIN 7.7 g/dl (13.5-17.5); LYMPH # 0.3 10^3/uL (1.5-5.0); LYMPH % 10.1 % (24.0-44.0); MEAN CORPUSCULAR HEMOGLOBIN 27.2 pg (27.0-33.0); MEAN CORPUSCULAR HGB CONC 31.8 g/dl (32.0-36.5); MEAN CORPUSCULAR VOLUME 85.5 fl (80.0-96.0); MONO # 0.5 10^3/uL (0.0-0.8); MONO % 15.1 % (2.0-8.0); NEUTROPHILS # 2.2 10^3/uL (1.5-8.5); NEUTROPHILS % 70.7 % (36.0-66.0); RED BLOOD COUNT 2.83 10^6/uL (4.30-6.10); WHITE BLOOD COUNT 3.2 10^3/uL (4.0-10.0)
[2024-09-30 05:07] LABS: PLATELET COUNT, AUTOMATED 93 10^3/uL (150-450)
[2024-09-30 05:13] LABS: INR 1.4; PROTHROMBIN TIME 17.4 SECONDS (12.5-14.5)
[2024-09-30 05:16] LABS: ALBUMIN 3.4 G/DL (3.2-5.2); BILIRUBIN,TOTAL 2.2 MG/DL (0.3-1.2); CALCIUM LEVEL 8.9 MG/DL (8.3-10.6); CREATININE FOR GFR 1.52 MG/DL (0.70-1.30); GLOMERULAR FILTRATION RATE 49.6 (>49); POTASSIUM SERUM 4.8 MMOL/L (3.5-5.1); TOTAL PROTEIN 6.5 G/DL (5.7-8.2)
[2024-09-30 18:29] VITALS: BP 156/74; TEMP 97.9; O2SAT 99
== END 2024-09-30 18:30 | disposition home or self-care (01) ==
LOC: M ED 02:46
DX: K70.31 Alcoholic cirrhosis of liver with ascites (principal); I25.2 Old myocardial infarction; K21.9 Gastro-esophageal reflux disease without esophagitis; E03.9 Hypothyroidism, unspecified; E78.5 Hyperlipidemia, unspecified; F32.A Depression, unspecified; Z86.79 Personal history of other diseases of the circulatory system; Z88.8 Allergy status to other drugs, medicaments and biological substances; Z79.82 Long term (current) use of aspirin; Z79.83 Long term (current) use of bisphosphonates; Z79.899 Other long term (current) drug therapy

== ENCOUNTER 2024-10-17 09:51 | Emergency (ER) | payer OTHER ==
[~2024-10-17] VITALS: Ht 165.1 cm; Wt 93.0 kg
[2024-10-17] MEDS ORDERED: ONDANSETRON 4MG 2ML VIAL As Ordered ONE (10:10)
[2024-10-17 11:26] LABS: VENOUS BASE EXCESS 0.2 (-2.0-2.0); VENOUS HCO3 25.2 MMOL/L (23.0-27.0); VENOUS O2 SATURATION 88.6 % (60.0-80.0); VENOUS PARTIAL PRESSURE CO2 42.4 mmHg (38.0-50.0); VENOUS PARTIAL PRESSURE O2 61.9 mmHg (30.0-50.0); VENOUS PH 7.392 UNITS (7.330-7.430); VENOUS STANDARD HCO3 24.5 MMOL/L; VENOUS TOTAL CO2 26.5 MMOL/L (24.0-28.0)
[2024-10-17 11:30] LABS: BASO % 0.5 % (0.0-1.0); EOS # 0.1 10^3/uL (0.0-0.5); EOS % 2.2 % (0.0-3.0); HEMATOCRIT 26.8 % (42.0-52.0); HEMOGLOBIN 8.4 g/dl (13.5-17.5); LYMPH # 0.4 10^3/uL (1.5-5.0); LYMPH % 10.1 % (24.0-44.0); MEAN CORPUSCULAR HGB CONC 31.3 g/dl (32.0-36.5); MEAN CORPUSCULAR VOLUME 89.3 fl (80.0-96.0); MONO # 0.7 10^3/uL (0.0-0.8); MONO % 17.6 % (2.0-8.0); NEUTROPHILS # 2.9 10^3/uL (1.5-8.5); NEUTROPHILS % 69.4 % (36.0-66.0); PLATELET COUNT, AUTOMATED 113 10^3/uL (150-450); WHITE BLOOD COUNT 4.2 10^3/uL (4.0-10.0)
[2024-10-17] MEDS ORDERED: ISOVUE-370 76% 100ML VIAL As Ordered ONE (11:48)
[2024-10-17 11:55] LABS: CK-MB VALUE MASS < 1.0 NG/ML (<3.6)
[2024-10-17 11:56] LABS: CPK CREATINE PHOSPHOKINASE 40 U/L (46-171)
[2024-10-17 11:57] LABS: ALBUMIN 2.5 G/DL (3.2-5.2); ALKALINE PHOSPHATASE 138 U/L (40-129); ALT/SGPT 47 U/L (7.0-40); AST/SGOT 99 U/L (<34); BILIRUBIN,DIRECT 1.2 MG/DL (<0.4); BILIRUBIN,TOTAL 2.2 MG/DL (0.3-1.2); BLOOD UREA NITROGEN 15 MG/DL (9-23); CARBON DIOXIDE LEVEL 25 MMOL/L (20-31); CHLORIDE LEVEL 107 MMOL/L (98-107); GLOMERULAR FILTRATION RATE > 60.0 (>49); GLUCOSE, FASTING 116 MG/DL (74-106); POTASSIUM SERUM 4.8 MMOL/L (3.5-5.1); SODIUM LEVEL 138 MMOL/L (136-145); TOTAL PROTEIN 6.1 G/DL (5.7-8.2)
[2024-10-17 11:58] LABS: THYROID STIMULATING HORMONE 4.145 uIU/ML (0.55-4.78); THYROXINE (T4) 8.4 UG/DL (4.5-10.9)
[2024-10-17 13:47] LABS: CK-MB VALUE MASS < 1.0 NG/ML (<3.6)
[2024-10-17 13:50] LABS: CPK CREATINE PHOSPHOKINASE 36 U/L (46-171); MB/CK RELATIVE INDEX 2.77 (< OR =4)
[2024-10-17] MEDS ORDERED: TRAZ300T16 PO (15:00)
[2024-10-17] MEDS ORDERED: LEVO75TA4 PO ×2 (15:00)
[2024-10-17] MEDS ORDERED: PANT-23 PO (15:00)
[2024-10-17] MEDS ORDERED: LACT20EL PO (15:08)
[2024-10-17] MEDS ORDERED: HOME MED LIST COMPLETE! XX SCH (15:10)
[2024-10-17] MEDS: fentaNYL 100 MCG/2 ML INJECTION IV ONE (16:04)
[2024-10-17] MEDS: ONDANSETRON 4MG ORAL DISINTEGRATING TAB PO ONE (16:04)
[2024-10-17] MEDS: ENOXAPARIN 100MG/1ML SYRINGE (J1650 PER 10MG) SC ONE (16:20)
[2024-10-17 17:07] LABS: INR 1.34; PARTIAL THROMBOPLASTIN TIME 35.5 SECONDS (24.8-34.2); PROTHROMBIN TIME 16.8 SECONDS (12.5-14.5)
[2024-10-17 17:48] LABS: SOURCE, BODY FLUID ALBUMIN ASCITES
[2024-10-17 17:58] LABS: APPEARANCE, BODY FLUID CLEAR (CLEAR); ASCITES FL COLOR YELLOW (COLORLESS); SOURCE, BODY FLUID ASCITES
[2024-10-17 18:30] VITALS: BP 132/59; TEMP 96.6; O2SAT 98
[2024-10-17] MEDS ORDERED: OMEP40CA4 PO (18:30)
[2024-10-17] MEDS ORDERED: LASI20TA3 PO (18:34)
[2024-10-17 18:45] LABS: SOURCE, BODY FLUID GLUCOSE ASCITES
[2024-10-17 19:54] LABS: SOURCE, BODY FLUID TOT PROTEIN ASCITES; TOTAL PROTEIN, BODY FLUID < 2.0 G/DL (NOT ESTABLISHED)
== END 2024-10-17 19:09 | disposition home or self-care (01) ==
LOC: M ED 09:51 → EDBD 09:51 → CANBEDREQ 18:13 → M ED 19:09
DX: K70.31 Alcoholic cirrhosis of liver with ascites (principal); R06.00 Dyspnea, unspecified; I81 Portal vein thrombosis; K21.9 Gastro-esophageal reflux disease without esophagitis; E03.9 Hypothyroidism, unspecified; F32.A Depression, unspecified; G43.909 Migraine, unspecified, not intractable, without status migrainosus; E55.9 Vitamin D deficiency, unspecified; E11.9 Type 2 diabetes mellitus without complications; K57.30 Diverticulosis of large intestine without perforation or abscess without bleeding; Z88.8 Allergy status to other drugs, medicaments and biological substances; Z79.899 Other long term (current) drug therapy
CPT/HCPCS: 49083; 71045; 74177; 80047; 80048; 80076; 82042; 82140; 82550; 82553; 82803; 82945; 83605; 83880; 84157; 84436; 84443; 84484; 85025; 85610; 85730; 86850; 86870; 86900; 86901; 87040; 87070; 87102; 87116; 87205; 87206; 87486; 87581; 87633; 87798; 89051; 93005; 93041; 94760; 96374; 99285; J3010; Q9967

== ENCOUNTER 2024-10-26 18:32 | Inpatient (IN) | payer MEDICARE, OTHER ==
[~2024-10-26] VITALS: Ht 165.1 cm; Wt 86.0 kg
[~2024-10-26 18:32] MED LIST changes: +LACT20EL PO; +LASI20TA3 PO; +LEVO75TA4 PO; +OMEP40CA4 PO; +PANT-23 PO; +TRAZ300T16 PO
[2024-10-26 19:33] LABS: BASO % 0.3 % (0.0-1.0); EOS # 0.1 10^3/uL (0.0-0.5); EOS % 1.3 % (0.0-3.0); HEMATOCRIT 27.1 % (42.0-52.0); HEMOGLOBIN 8.6 g/dl (13.5-17.5); LYMPH # 0.7 10^3/uL (1.5-5.0); LYMPH % 10.3 % (24.0-44.0); MEAN CORPUSCULAR HEMOGLOBIN 28.5 pg (27.0-33.0); MEAN CORPUSCULAR HGB CONC 31.7 g/dl (32.0-36.5); MEAN CORPUSCULAR VOLUME 89.7 fl (80.0-96.0); MONO % 14.8 % (2.0-8.0); NEUTROPHILS # 5.1 10^3/uL (1.5-8.5); NEUTROPHILS % 72.9 % (36.0-66.0); PLATELET COUNT, AUTOMATED 116 10^3/uL (150-450); RED BLOOD COUNT 3.02 10^6/uL (4.30-6.10)
[2024-10-26 19:55] LABS: CK-MB VALUE MASS < 1.0 NG/ML (<3.6); LIPASE 47 U/L (12-53)
[2024-10-26 19:57] LABS: ALBUMIN 2.6 G/DL (3.2-5.2); ALKALINE PHOSPHATASE 169 U/L (40-129); ALT/SGPT 58 U/L (7.0-40); AST/SGOT 111 U/L (<34); BILIRUBIN,DIRECT 1.4 MG/DL (<0.4); BILIRUBIN,TOTAL 2.8 MG/DL (0.3-1.2); BLOOD UREA NITROGEN 17 MG/DL (9-23); CALCIUM LEVEL 8.1 MG/DL (8.3-10.6); CARBON DIOXIDE LEVEL 24 MMOL/L (20-31); CHLORIDE LEVEL 105 MMOL/L (98-107); CREATININE FOR GFR 1.12 MG/DL (0.70-1.30); GLOMERULAR FILTRATION RATE > 60.0 (>49); GLUCOSE, FASTING 144 MG/DL (74-106); POTASSIUM SERUM 4.4 MMOL/L (3.5-5.1); SODIUM LEVEL 138 MMOL/L (136-145); TOTAL PROTEIN 6.8 G/DL (5.7-8.2)
[2024-10-26 20:08] LABS: CPK CREATINE PHOSPHOKINASE 52 U/L (46-171); MB/CK RELATIVE INDEX 1.92 (< OR =4)
[2024-10-26] MEDS ORDERED: ISOVUE-370 76% 100ML VIAL As Ordered ONE (20:12)
[2024-10-26 20:51] LABS: CK-MB VALUE MASS < 1.0 NG/ML (<3.6)
[2024-10-26 20:52] LABS: CPK CREATINE PHOSPHOKINASE 44 U/L (46-171); MB/CK RELATIVE INDEX 2.27 (< OR =4)
[2024-10-26] MEDS: MORPHINE 4 MG/ML 1ML VIAL IV ONE (21:44)
[2024-10-26] MEDS ORDERED: MOM 30ML SUSPENSION UDC PO PRN (22:50)
[2024-10-26] MEDS ORDERED: OMEP40CA5 PO (23:08)
[2024-10-26] MEDS ORDERED: ONDA-84 PO (23:08)
[2024-10-26] MEDS ORDERED: GLUCOSE 4 GM CHEW PO PRN (23:10)
[2024-10-26] MEDS ORDERED: DEXTROSE 50% 50ML SYRINGE IV PRN (23:10)
[2024-10-26] MEDS ORDERED: GLUCAGON INJ 1MG VIAL SC PRN (23:10)
[2024-10-26] MEDS ORDERED: HOME MED LIST COMPLETE! XX SCH (23:15)
[2024-10-26] MEDS ORDERED: META28.32 PO (23:35)
[2024-10-27] MEDS: FUROSEMIDE 100MG/10ML VIAL IV ONE ×4 (01:23→22:21)
[2024-10-27] MEDS: INSULIN LISPRO (NovoLOG) PER UNIT SC SCH ×3 (01:26→21:00)
[2024-10-27] MEDS: traZODone 100 MG TAB PO PRN (01:53)
[2024-10-27] MEDS: LEVOTHYROXINE 37.5MCG PER 1/2TAB (0.0375MG) PO SCH (06:00)
[2024-10-27 06:22] LABS: HEMATOCRIT 26.2 % (42.0-52.0); HEMOGLOBIN 8.3 g/dl (13.5-17.5); MEAN CORPUSCULAR HEMOGLOBIN 28.3 pg (27.0-33.0); MEAN CORPUSCULAR HGB CONC 31.7 g/dl (32.0-36.5); MEAN CORPUSCULAR VOLUME 89.4 fl (80.0-96.0); RED BLOOD COUNT 2.93 10^6/uL (4.30-6.10); WHITE BLOOD COUNT 3.8 10^3/uL (4.0-10.0)
[2024-10-27 07:14] LABS: ALBUMIN 2.4 G/DL (3.2-5.2); ALKALINE PHOSPHATASE 153 U/L (40-129); ALT/SGPT 53 U/L (7.0-40); AST/SGOT 96 U/L (<34); BILIRUBIN,TOTAL 2.8 MG/DL (0.3-1.2); BLOOD UREA NITROGEN 16 MG/DL (9-23); CALCIUM LEVEL 8.2 MG/DL (8.3-10.6); CARBON DIOXIDE LEVEL 26 MMOL/L (20-31); CHLORIDE LEVEL 105 MMOL/L (98-107); GLOMERULAR FILTRATION RATE > 60.0 (>49); GLUCOSE, FASTING 129 MG/DL (74-106); POTASSIUM SERUM 4.8 MMOL/L (3.5-5.1); SODIUM LEVEL 137 MMOL/L (136-145); TOTAL PROTEIN 6.2 G/DL (5.7-8.2)
[2024-10-27 07:28] LABS: PLATELET COUNT, AUTOMATED 90 10^3/uL (150-450)
[2024-10-27] MEDS: LACTULOSE 20GM/30ML SYRUP UDC PO SCH ×2 (07:55→21:40)
[2024-10-27] MEDS: PANTOPRAZOLE 40MG TAB (PROTONIX) PO SCH (07:55)
[2024-10-27 09:17] LABS: LDH LACTATE DEHYDROGENASE 179 U/L (120-246)
[2024-10-27 13:32] LABS: APPEARANCE, BODY FLUID HAZY (CLEAR); PLEURAL FL COLOR YELLOW (COLORLESS); SOURCE, BODY FLUID PLEURAL
[2024-10-27 14:02] LABS: PH BODY FLUID 7.533 UNITS (NOT ESTABLISHED); SOURCE, BODY FLUID pH PLEURAL
[2024-10-27 14:05] LABS: SOURCE, BODY FLUID ALBUMIN PLEURAL
[2024-10-27 14:10] LABS: SOURCE, BODY FLUID GLUCOSE PLEURAL; SOURCE, BODY FLUID TOT PROTEIN PLEURAL; SOURCE, BODY FLUID TRIG PLEURAL; TOTAL PROTEIN, BODY FLUID < 2.0 G/DL (NOT ESTABLISHED); TRIGLYCERIDE, BODY FLUID 20 MG/DL (NOT ESTABLISHED)
[2024-10-27 14:11] LABS: LDH, BODY FLUID 48 U/L (NOT ESTABLISHED); SOURCE, BODY FLUID LDH PLEURAL
[2024-10-27 14:12] LABS: AMYLASE, BODY FLUID < 20 U/L (NOT ESTABLISHED); CHOLESTEROL, BODY FLUID < 25 MG/DL (NOT ESTABLISHED); SOURCE, BODY FLUID AMYLASE PLEURAL; SOURCE, BODY FLUID CHOL PLEURAL
[2024-10-27 16:04] LABS: INR 1.33; PROTHROMBIN TIME 16.7 SECONDS (12.5-14.5)
[2024-10-27] MEDS: OMEPRAZOLE 20MG CAP PO SCH (17:05)
[2024-10-27] MEDS: HEPARIN SOD (PORCINE) 5000UNITS/ML 1ML VIAL/SYRINGE SC SCH (17:06)
[2024-10-27 18:23] VITALS: BP 121/65; TEMP 98.9; O2SAT 97
[2024-10-27 19:39] VITALS: BP 125/70; TEMP 98.9; O2SAT 97
[2024-10-27 21:03] LABS: BLOOD UREA NITROGEN 19 MG/DL (9-23); CALCIUM LEVEL 7.8 MG/DL (8.3-10.6); CARBON DIOXIDE LEVEL 28 MMOL/L (20-31); CHLORIDE LEVEL 103 MMOL/L (98-107); CREATININE FOR GFR 1.21 MG/DL (0.70-1.30); GLOMERULAR FILTRATION RATE > 60.0 (>49); GLUCOSE, FASTING 137 MG/DL (74-106); MAGNESIUM LEVEL 1.4 MG/DL (1.8-2.4); POTASSIUM SERUM 3.7 MMOL/L (3.5-5.1); SODIUM LEVEL 139 MMOL/L (136-145)
[2024-10-27 23:57] VITALS: BP 125/70; TEMP 97.9; O2SAT 93
[2024-10-28] VITALS (7 sets, daily range): BP systolic 94–122; BP diastolic 51–63; PULSE 98; TEMP 98.3–99.6; O2SAT 91–95
[2024-10-28] MEDS: METOCLOPRAMIDE INJ 10MG/2ML VIAL IV ONE (00:46)
[2024-10-28] MEDS: LEVOTHYROXINE 75MCG TABLET (0.075MG) PO SCH (05:59)
[2024-10-28 06:49] LABS: BASO % 0.3 % (0.0-1.0); EOS # 0.1 10^3/uL (0.0-0.5); EOS % 2.6 % (0.0-3.0); HEMATOCRIT 23.7 % (42.0-52.0); HEMOGLOBIN 7.4 g/dl (13.5-17.5); LYMPH # 0.4 10^3/uL (1.5-5.0); LYMPH % 12.9 % (24.0-44.0); MEAN CORPUSCULAR HEMOGLOBIN 27.7 pg (27.0-33.0); MEAN CORPUSCULAR HGB CONC 31.2 g/dl (32.0-36.5); MEAN CORPUSCULAR VOLUME 88.8 fl (80.0-96.0); MONO # 0.5 10^3/uL (0.0-0.8); MONO % 15.8 % (2.0-8.0); NEUTROPHILS # 2.3 10^3/uL (1.5-8.5); NEUTROPHILS % 68.1 % (36.0-66.0); RED BLOOD COUNT 2.67 10^6/uL (4.30-6.10); WHITE BLOOD COUNT 3.4 10^3/uL (4.0-10.0)
[2024-10-28 07:15] LABS: ALBUMIN 2.1 G/DL (3.2-5.2); ALKALINE PHOSPHATASE 138 U/L (40-129); ALT/SGPT 45 U/L (7.0-40); AST/SGOT 81 U/L (<34); BILIRUBIN,DIRECT 1.1 MG/DL (<0.4); BILIRUBIN,TOTAL 2.1 MG/DL (0.3-1.2); BLOOD UREA NITROGEN 19 MG/DL (9-23); CALCIUM LEVEL 7.4 MG/DL (8.3-10.6); CARBON DIOXIDE LEVEL 28 MMOL/L (20-31); CHLORIDE LEVEL 101 MMOL/L (98-107); CREATININE FOR GFR 1.18 MG/DL (0.70-1.30); GLOMERULAR FILTRATION RATE > 60.0 (>49); GLUCOSE, FASTING 109 MG/DL (74-106); POTASSIUM SERUM 3.2 MMOL/L (3.5-5.1); SODIUM LEVEL 137 MMOL/L (136-145); TOTAL PROTEIN 5.5 G/DL (5.7-8.2)
[2024-10-28 07:41] LABS: PLATELET COUNT, AUTOMATED 75 10^3/uL (150-450)
[2024-10-28] MEDS: MAGNESIUM GLUCONATE 500 MG TAB PO SCH (09:00)
[2024-10-28] MEDS: SPIRONOLACTONE 50 MG TAB PO SCH (11:07)
[2024-10-28] MEDS: POTASSIUM CHLORIDE 10MEQ SR TABLET PO ONE (11:07)
[2024-10-28] MEDS: FUROSEMIDE 40 MG TAB PO SCH (11:08)
[2024-10-28 11:16] LABS: SOURCE, BODY FLUID ASCITES
[2024-10-28 11:17] LABS: APPEARANCE, BODY FLUID CLEAR (CLEAR); ASCITES FL COLOR YELLOW (COLORLESS)
[2024-10-28 11:23] LABS: SOURCE, BODY FLUID ALBUMIN ASCITES
[2024-10-28 11:28] LABS: SOURCE, BODY FLUID GLUCOSE ASCITES
[2024-10-28 11:29] LABS: SOURCE, BODY FLUID TOT PROTEIN ASCITES; TOTAL PROTEIN, BODY FLUID < 2.0 G/DL (NOT ESTABLISHED)
[2024-10-29] VITALS (17 sets, daily range): BP systolic 98–120; BP diastolic 46–66; TEMP 97.5–99.3; O2SAT 89–98
[2024-10-29 06:36] LABS: BASO % 0.3 % (0.0-1.0); EOS # 0.1 10^3/uL (0.0-0.5); EOS % 2.8 % (0.0-3.0); HEMATOCRIT 24.2 % (42.0-52.0); HEMOGLOBIN 7.8 g/dl (13.5-17.5); LYMPH # 0.5 10^3/uL (1.5-5.0); LYMPH % 15.3 % (24.0-44.0); MEAN CORPUSCULAR HEMOGLOBIN 28.5 pg (27.0-33.0); MEAN CORPUSCULAR HGB CONC 32.2 g/dl (32.0-36.5); MEAN CORPUSCULAR VOLUME 88.3 fl (80.0-96.0); MONO # 0.6 10^3/uL (0.0-0.8); MONO % 16.4 % (2.0-8.0); NEUTROPHILS # 2.3 10^3/uL (1.5-8.5); NEUTROPHILS % 64.9 % (36.0-66.0); RED BLOOD COUNT 2.74 10^6/uL (4.30-6.10); WHITE BLOOD COUNT 3.5 10^3/uL (4.0-10.0)
[2024-10-29 06:39] LABS: PLATELET COUNT, AUTOMATED 87 10^3/uL (150-450)
[2024-10-29 06:58] LABS: ALBUMIN 2.1 G/DL (3.2-5.2); BILIRUBIN,TOTAL 1.7 MG/DL (0.3-1.2); CALCIUM LEVEL 7.6 MG/DL (8.3-10.6); CREATININE FOR GFR 1.35 MG/DL (0.70-1.30); GLOMERULAR FILTRATION RATE 56.8 (>49); POTASSIUM SERUM 3.9 MMOL/L (3.5-5.1); TOTAL PROTEIN 5.8 G/DL (5.7-8.2)
[2024-10-29 08:25] LABS: MAGNESIUM LEVEL 1.2 MG/DL (1.8-2.4)
[2024-10-29] MEDS: MAG SULF 1GM/100ML (MAG RUN) 1 GM in IV 1 EA IV SCH (11:24)
[2024-10-29 13:37] LABS: BLOOD UREA NITROGEN 18 MG/DL (9-23); CALCIUM LEVEL 7.7 MG/DL (8.3-10.6); CARBON DIOXIDE LEVEL 28 MMOL/L (20-31); CHLORIDE LEVEL 104 MMOL/L (98-107); CREATININE FOR GFR 1.27 MG/DL (0.70-1.30); GLOMERULAR FILTRATION RATE > 60.0 (>49); GLUCOSE, FASTING 143 MG/DL (74-106); POTASSIUM SERUM 3.5 MMOL/L (3.5-5.1); SODIUM LEVEL 139 MMOL/L (136-145)
[2024-10-29] MEDS: ONDANSETRON 4MG ORAL DISINTEGRATING TAB PO ONE (20:32)
[2024-10-30 00:08] VITALS: BP 104/52; TEMP 97.6; O2SAT 90
[2024-10-30 03:47] VITALS: BP 117/59; TEMP 97.9; O2SAT 91
[2024-10-30 04:53] LABS: BASO % 0.4 % (0.0-1.0); EOS # 0.1 10^3/uL (0.0-0.5); HEMATOCRIT 25.7 % (42.0-52.0); HEMOGLOBIN 8.2 g/dl (13.5-17.5); LYMPH # 0.5 10^3/uL (1.5-5.0); LYMPH % 11.3 % (24.0-44.0); MEAN CORPUSCULAR HEMOGLOBIN 27.7 pg (27.0-33.0); MEAN CORPUSCULAR HGB CONC 31.9 g/dl (32.0-36.5); MEAN CORPUSCULAR VOLUME 86.8 fl (80.0-96.0); MONO # 0.6 10^3/uL (0.0-0.8); MONO % 14.2 % (2.0-8.0); NEUTROPHILS # 3.3 10^3/uL (1.5-8.5); NEUTROPHILS % 71.9 % (36.0-66.0); PLATELET COUNT, AUTOMATED 101 10^3/uL (150-450); RED BLOOD COUNT 2.96 10^6/uL (4.30-6.10); WHITE BLOOD COUNT 4.5 10^3/uL (4.0-10.0)
[2024-10-30 05:15] LABS: ALBUMIN 2.1 G/DL (3.2-5.2); ALKALINE PHOSPHATASE 148 U/L (40-129); ALT/SGPT 48 U/L (7.0-40); AST/SGOT 91 U/L (<34); BLOOD UREA NITROGEN 18 MG/DL (9-23); CALCIUM LEVEL 8.2 MG/DL (8.3-10.6); CARBON DIOXIDE LEVEL 28 MMOL/L (20-31); CHLORIDE LEVEL 102 MMOL/L (98-107); CREATININE FOR GFR 1.21 MG/DL (0.70-1.30); GLOMERULAR FILTRATION RATE > 60.0 (>49); GLUCOSE, FASTING 104 MG/DL (74-106); POTASSIUM SERUM 3.6 MMOL/L (3.5-5.1); SODIUM LEVEL 138 MMOL/L (136-145)
[2024-10-30 07:41] LABS: MAGNESIUM LEVEL 1.7 MG/DL (1.8-2.4)
[2024-10-30 09:39] VITALS: O2SAT 94
[2024-10-30] MEDS ORDERED: LACT20EL PO (10:45)
[2024-10-30] MEDS ORDERED: FURO40TA2 PO ×2 (10:45→10:52)
[2024-10-30] MEDS ORDERED: MAGN50TA PO (10:45)
[2024-10-30] MEDS ORDERED: ALDA50TA2 PO (10:45)
[2024-10-30] MEDS ORDERED: CIPR500T39 PO (11:45)
[2024-10-30 12:00] VITALS: BP 109/58; TEMP 98.3; O2SAT 92
== END 2024-10-30 15:55 | disposition home or self-care (01) | DRG 433 ==
LOC: EDBD 18:32 → M ED 18:32 → M ED INP 22:48 → M PCU 10-27 17:52
PROVIDERS: ADMIT Family Medicine; ATTEND Student in an Organized Health Care Education/Training Program
PROC: 0W993ZZ Drainage of Right Pleural Cavity, Percutaneous Approach (ICD-10-PCS; principal; 2024-10-27 15:30)
PROC: 0W9G3ZZ Drainage of Peritoneal Cavity, Percutaneous Approach (ICD-10-PCS; 2024-10-28)
DX: K70.31 Alcoholic cirrhosis of liver with ascites (principal); J90 Pleural effusion, not elsewhere classified; D61.818 Other pancytopenia; I50.22 Chronic systolic (congestive) heart failure; K76.6 Portal hypertension; E11.9 Type 2 diabetes mellitus without complications; E03.9 Hypothyroidism, unspecified; E78.5 Hyperlipidemia, unspecified; K21.9 Gastro-esophageal reflux disease without esophagitis; I11.0 Hypertensive heart disease with heart failure; K72.90 Hepatic failure, unspecified without coma; E87.6 Hypokalemia; E83.42 Hypomagnesemia; Z88.8 Allergy status to other drugs, medicaments and biological substances; Z79.899 Other long term (current) drug therapy; Z79.890 Hormone replacement therapy; G89.29 Other chronic pain; M54.50 Low back pain, unspecified; G47.00 Insomnia, unspecified; Z66 Do not resuscitate

== ENCOUNTER 2024-11-03 21:47 | Inpatient (IN) | payer MEDICARE ==
[~2024-11-03] VITALS: Ht 165.1 cm; Wt 84.5 kg
[~2024-11-03 21:47] MED LIST changes: +ALDA50TA2 PO; +CIPR500T39 PO; +FURO40TA2 PO; +MAGN50TA PO; +META28.32 PO; +OMEP40CA5 PO; +ONDA-84 PO
[2024-11-03 23:08] LABS: BASO % 0.3 % (0.0-1.0); EOS # 0.2 10^3/uL (0.0-0.5); HEMOGLOBIN 9.4 g/dl (13.5-17.5); LYMPH # 0.7 10^3/uL (1.5-5.0); LYMPH % 8.9 % (24.0-44.0); MEAN CORPUSCULAR HEMOGLOBIN 27.9 pg (27.0-33.0); MEAN CORPUSCULAR HGB CONC 31.3 g/dl (32.0-36.5); MONO # 1.3 10^3/uL (0.0-0.8); NEUTROPHILS # 5.3 10^3/uL (1.5-8.5); NEUTROPHILS % 71.4 % (36.0-66.0); PLATELET COUNT, AUTOMATED 119 10^3/uL (150-450); RED BLOOD COUNT 3.37 10^6/uL (4.30-6.10); WHITE BLOOD COUNT 7.4 10^3/uL (4.0-10.0)
[2024-11-03 23:33] LABS: LIPASE 134 U/L (12-53)
[2024-11-03 23:35] LABS: ALBUMIN 2.4 G/DL (3.2-5.2); ALKALINE PHOSPHATASE 169 U/L (40-129); ALT/SGPT 60 U/L (7.0-40); AST/SGOT 109 U/L (<34); BILIRUBIN,DIRECT 1.1 MG/DL (<0.4); BILIRUBIN,TOTAL 2.3 MG/DL (0.3-1.2); BLOOD UREA NITROGEN 19 MG/DL (9-23); CALCIUM LEVEL 7.8 MG/DL (8.3-10.6); CARBON DIOXIDE LEVEL 27 MMOL/L (20-31); CHLORIDE LEVEL 99 MMOL/L (98-107); CK-MB VALUE MASS < 1.0 NG/ML (<3.6); CREATININE FOR GFR 1.22 MG/DL (0.70-1.30); GLOMERULAR FILTRATION RATE > 60.0 (>49); GLUCOSE, FASTING 130 MG/DL (74-106); POTASSIUM SERUM 3.9 MMOL/L (3.5-5.1); SODIUM LEVEL 135 MMOL/L (136-145); TOTAL PROTEIN 6.7 G/DL (5.7-8.2)
[2024-11-03 23:37] LABS: FREE T4 1.16 NG/DL (0.89-1.76)
[2024-11-03 23:38] LABS: THYROID STIMULATING HORMONE 5.527 uIU/ML (0.55-4.78)
[2024-11-03 23:40] LABS: CPK CREATINE PHOSPHOKINASE 44 U/L (46-171); MB/CK RELATIVE INDEX 2.27 (< OR =4)
[2024-11-03] MEDS ORDERED: ISOVUE-370 76% 100ML VIAL As Ordered ONE (23:43)
[2024-11-04] VITALS (10 sets, daily range): BP systolic 92–134; BP diastolic 55–72; TEMP 97.4–100.1; O2SAT 89–95
[2024-11-04 01:00] LABS: CK-MB VALUE MASS < 1.0 NG/ML (<3.6)
[2024-11-04 01:03] LABS: CPK CREATINE PHOSPHOKINASE 62 U/L (46-171); MB/CK RELATIVE INDEX 1.61 (< OR =4)
[2024-11-04] MEDS: ONDANSETRON 4MG 2ML VIAL IV ONE (02:36)
[2024-11-04] MEDS: MORPHINE 2 MG/ML 1ML VIAL IV ONE (02:40)
[2024-11-04] MEDS ORDERED: MOM 30ML SUSPENSION UDC PO PRN (03:45)
[2024-11-04] MEDS ORDERED: GLUCAGON INJ 1MG VIAL SC PRN (05:00)
[2024-11-04] MEDS ORDERED: DEXTROSE 50% 50ML SYRINGE IV PRN (05:00)
[2024-11-04] MEDS ORDERED: GLUCOSE 4 GM CHEW PO PRN (05:00)
[2024-11-04] MEDS: MORPHINE 4 MG/ML 1ML VIAL IV PRN (05:30)
[2024-11-04] MEDS: INSULIN LISPRO (NovoLOG) PER UNIT SC SCH (06:00)
[2024-11-04] MEDS: LEVOTHYROXINE 100MCG (0.1MG) 5ML SDV PF (SOLUTION FORM) IV ONE (06:15)
[2024-11-04] MEDS: ONDANSETRON 4MG 2ML VIAL IV PRN (06:15)
[2024-11-04 06:43] LABS: HEMATOCRIT 27.3 % (42.0-52.0); HEMOGLOBIN 8.8 g/dl (13.5-17.5); MEAN CORPUSCULAR HEMOGLOBIN 28.6 pg (27.0-33.0); MEAN CORPUSCULAR HGB CONC 32.2 g/dl (32.0-36.5); MEAN CORPUSCULAR VOLUME 88.6 fl (80.0-96.0); PLATELET COUNT, AUTOMATED 111 10^3/uL (150-450); RED BLOOD COUNT 3.08 10^6/uL (4.30-6.10); WHITE BLOOD COUNT 6.2 10^3/uL (4.0-10.0)
[2024-11-04 07:07] LABS: C REACTIVE PROTEIN QUANTITATIV 2.46 MG/DL (<1.0)
[2024-11-04 07:17] LABS: ALBUMIN 2.2 G/DL (3.2-5.2); ALKALINE PHOSPHATASE 158 U/L (40-129); ALT/SGPT 56 U/L (7.0-40); AST/SGOT 98 U/L (<34); BILIRUBIN,TOTAL 2.3 MG/DL (0.3-1.2); BLOOD UREA NITROGEN 20 MG/DL (9-23); CALCIUM LEVEL 7.7 MG/DL (8.3-10.6); CARBON DIOXIDE LEVEL 26 MMOL/L (20-31); CHLORIDE LEVEL 101 MMOL/L (98-107); CREATININE FOR GFR 1.16 MG/DL (0.70-1.30); GLOMERULAR FILTRATION RATE > 60.0 (>49); GLUCOSE, FASTING 139 MG/DL (74-106); POTASSIUM SERUM 3.8 MMOL/L (3.5-5.1); SODIUM LEVEL 136 MMOL/L (136-145); TOTAL PROTEIN 6.2 G/DL (5.7-8.2)
[2024-11-04] MEDS: PANTOPRAZOLE 40MG VIAL IV SCH (08:25)
[2024-11-04] MEDS ORDERED: CIPR-249 PO (09:36)
[2024-11-04] MEDS ORDERED: FURO40TA2 PO (09:36)
[2024-11-04] MEDS ORDERED: SPIR50TA4 PO (09:36)
[2024-11-04] MEDS ORDERED: MAGN500T8 PO (09:36)
[2024-11-04] MEDS ORDERED: PANT40TA29 PO (09:37)
[2024-11-04] MEDS ORDERED: HOME MED LIST COMPLETE! XX SCH (09:40)
[2024-11-04] MEDS ORDERED: LACTULOSE 20GM/30ML SYRUP UDC PO PRN (17:15)
[2024-11-04] MEDS ORDERED: METAXALONE 800 MG TABLET PO PRN (17:15)
[2024-11-04] MEDS: SPIRONOLACTONE 50 MG TAB PO SCH (18:03)
[2024-11-05 04:15] VITALS: BP 110/60; TEMP 98.4; O2SAT 93
[2024-11-05] MEDS: LEVOTHYROXINE 75MCG TABLET (0.075MG) PO SCH (06:25)
[2024-11-05] MEDS: CIPROFLOXACIN 500MG TABLET PO SCH (06:26)
[2024-11-05 08:23] VITALS: TEMP 98.9; O2SAT 98
[2024-11-05 08:27] VITALS: BP 108/62
[2024-11-05 08:57] LABS: HEMATOCRIT 25.3 % (42.0-52.0); HEMOGLOBIN 8.1 g/dl (13.5-17.5); MEAN CORPUSCULAR HEMOGLOBIN 28.7 pg (27.0-33.0); MEAN CORPUSCULAR VOLUME 89.7 fl (80.0-96.0); RED BLOOD COUNT 2.82 10^6/uL (4.30-6.10); WHITE BLOOD COUNT 3.8 10^3/uL (4.0-10.0)
[2024-11-05 09:27] LABS: ALKALINE PHOSPHATASE 134 U/L (40-129); ALT/SGPT 46 U/L (7.0-40); AST/SGOT 79 U/L (<34); BILIRUBIN,TOTAL 3.2 MG/DL (0.3-1.2); BLOOD UREA NITROGEN 18 MG/DL (9-23); CALCIUM LEVEL 7.7 MG/DL (8.3-10.6); CARBON DIOXIDE LEVEL 26 MMOL/L (20-31); CHLORIDE LEVEL 101 MMOL/L (98-107); CREATININE FOR GFR 1.11 MG/DL (0.70-1.30); GLOMERULAR FILTRATION RATE > 60.0 (>49); GLUCOSE, FASTING 172 MG/DL (74-106); POTASSIUM SERUM 3.8 MMOL/L (3.5-5.1); SODIUM LEVEL 135 MMOL/L (136-145); TOTAL PROTEIN 5.8 G/DL (5.7-8.2)
[2024-11-05 09:54] LABS: PLATELET COUNT, AUTOMATED 91 10^3/uL (150-450)
[2024-11-05 12:00] VITALS: BP 99/61; TEMP 98.8; O2SAT 95
[2024-11-05] MEDS ORDERED: SPIR50TA4 PO (13:10)
[2024-11-05 15:30] VITALS: BP 105/57; TEMP 98.8; O2SAT 94
[2024-11-05 16:03] VITALS: BP 105/56; TEMP 98.9; O2SAT 92
[2024-11-05] MEDS ORDERED: FUROSEMIDE 40 MG TAB PO SCH (18:00)
== END 2024-11-05 16:58 | disposition home or self-care (01) | DRG 433 ==
LOC: M ED 21:47 → M PCU 11-04 03:53
PROVIDERS: ADMIT Student in an Organized Health Care Education/Training Program; ATTEND Student in an Organized Health Care Education/Training Program
PROC: 0W993ZZ Drainage of Right Pleural Cavity, Percutaneous Approach (ICD-10-PCS; principal; 2024-11-04 14:30)
PROC: 0W9G3ZZ Drainage of Peritoneal Cavity, Percutaneous Approach (ICD-10-PCS; 2024-11-05)
DX: K70.31 Alcoholic cirrhosis of liver with ascites (principal); J94.8 Other specified pleural conditions; K76.6 Portal hypertension; J98.11 Atelectasis; E87.1 Hypo-osmolality and hyponatremia; I10 Essential (primary) hypertension; E03.9 Hypothyroidism, unspecified; E11.9 Type 2 diabetes mellitus without complications; E78.5 Hyperlipidemia, unspecified; K21.9 Gastro-esophageal reflux disease without esophagitis; D69.59 Other secondary thrombocytopenia; G89.29 Other chronic pain; Z88.8 Allergy status to other drugs, medicaments and biological substances; Z79.899 Other long term (current) drug therapy

== ENCOUNTER 2024-11-10 09:38 | Inpatient (IN) | payer MEDICARE ==
[~2024-11-10] VITALS: Ht 167.6 cm; Wt 83.9 kg
[~2024-11-10 09:38] MED LIST changes: +MAGN500T8 PO; +PANT40TA29 PO; +SPIR50TA4 PO
[2024-11-10 10:30] LABS: BASO % 0.5 % (0.0-1.0); EOS # 0.1 10^3/uL (0.0-0.5); EOS % 1.4 % (0.0-3.0); HEMATOCRIT 29.7 % (42.0-52.0); HEMOGLOBIN 9.4 g/dl (13.5-17.5); LYMPH # 0.6 10^3/uL (1.5-5.0); LYMPH % 10.5 % (24.0-44.0); MEAN CORPUSCULAR HEMOGLOBIN 28.7 pg (27.0-33.0); MEAN CORPUSCULAR HGB CONC 31.6 g/dl (32.0-36.5); MEAN CORPUSCULAR VOLUME 90.8 fl (80.0-96.0); MONO # 0.8 10^3/uL (0.0-0.8); MONO % 14.8 % (2.0-8.0); NEUTROPHILS % 72.6 % (36.0-66.0); PLATELET COUNT, AUTOMATED 119 10^3/uL (150-450); RED BLOOD COUNT 3.27 10^6/uL (4.30-6.10); WHITE BLOOD COUNT 5.6 10^3/uL (4.0-10.0)
[2024-11-10 10:41] LABS: INR 1.36; PROTHROMBIN TIME 17.1 SECONDS (12.5-14.5)
[2024-11-10 10:50] LABS: LIPASE 155 U/L (12-53)
[2024-11-10 10:52] LABS: ALBUMIN 2.3 G/DL (3.2-5.2); ALKALINE PHOSPHATASE 171 U/L (40-129); ALT/SGPT 58 U/L (7.0-40); AST/SGOT 103 U/L (<34); BILIRUBIN,DIRECT 1.2 MG/DL (<0.4); BILIRUBIN,TOTAL 2.5 MG/DL (0.3-1.2); BLOOD UREA NITROGEN 15 MG/DL (9-23); CALCIUM LEVEL 8.2 MG/DL (8.3-10.6); CARBON DIOXIDE LEVEL 25 MMOL/L (20-31); CHLORIDE LEVEL 103 MMOL/L (98-107); CREATININE FOR GFR 1.16 MG/DL (0.70-1.30); GLOMERULAR FILTRATION RATE > 60.0 (>49); GLUCOSE, FASTING 114 MG/DL (74-106); POTASSIUM SERUM 4.1 MMOL/L (3.5-5.1); SODIUM LEVEL 136 MMOL/L (136-145); TOTAL PROTEIN 6.6 G/DL (5.7-8.2)
[2024-11-10 10:54] LABS: THYROID STIMULATING HORMONE 5.064 uIU/ML (0.55-4.78); THYROXINE (T4) 8.3 UG/DL (4.5-10.9)
[2024-11-10] MEDS ORDERED: OMEP40CA4 PO (14:43)
[2024-11-10] MEDS ORDERED: HOME MED LIST COMPLETE! XX SCH (14:45)
[2024-11-10] MEDS: SPIRONOLACTONE 50 MG TAB PO SCH (16:40)
[2024-11-10] MEDS: FUROSEMIDE 40MG/4ML VIAL IV SCH (16:43)
[2024-11-10] MEDS ORDERED: LACTULOSE 20GM/30ML SYRUP UDC PO PRN (17:15)
[2024-11-10] MEDS: RAMELTEON 8 MG TAB (ROZEREM) PO PRN (21:13)
[2024-11-11] MEDS: LEVOTHYROXINE 75MCG TABLET (0.075MG) PO SCH (06:00)
[2024-11-11 06:13] LABS: BASO % 0.4 % (0.0-1.0); EOS # 0.1 10^3/uL (0.0-0.5); HEMOGLOBIN 8.8 g/dl (13.5-17.5); LYMPH # 0.6 10^3/uL (1.5-5.0); LYMPH % 13.1 % (24.0-44.0); MEAN CORPUSCULAR HEMOGLOBIN 28.4 pg (27.0-33.0); MEAN CORPUSCULAR HGB CONC 32.6 g/dl (32.0-36.5); MEAN CORPUSCULAR VOLUME 87.1 fl (80.0-96.0); MONO # 0.7 10^3/uL (0.0-0.8); MONO % 15.3 % (2.0-8.0); NEUTROPHILS # 3.1 10^3/uL (1.5-8.5); NEUTROPHILS % 68.8 % (36.0-66.0); PLATELET COUNT, AUTOMATED 101 10^3/uL (150-450); WHITE BLOOD COUNT 4.5 10^3/uL (4.0-10.0)
[2024-11-11 06:43] LABS: BLOOD UREA NITROGEN 17 MG/DL (9-23); CALCIUM LEVEL 7.8 MG/DL (8.3-10.6); CARBON DIOXIDE LEVEL 25 MMOL/L (20-31); CHLORIDE LEVEL 100 MMOL/L (98-107); CREATININE FOR GFR 1.21 MG/DL (0.70-1.30); GLOMERULAR FILTRATION RATE > 60.0 (>49); GLUCOSE, FASTING 101 MG/DL (74-106); IRON (FE) 33 UG/DL (65-175); PERCENT SATURATION 12.3 % (19.7-50.0); POTASSIUM SERUM 4.3 MMOL/L (3.5-5.1); SODIUM LEVEL 133 MMOL/L (136-145); TOTAL IRON BINDING CAPACITY 269 UG/DL (250-425)
[2024-11-11 06:45] LABS: FERRITIN 44.5 NG/ML (10.5-307.3); VITAMIN B12 LEVEL 1393 PG/ML (211-911)
[2024-11-11] MEDS: OMEPRAZOLE 20MG CAP PO SCH (08:45)
[2024-11-11 12:11] VITALS: BP 99/59; TEMP 98.9; O2SAT 96
[2024-11-11] MEDS: ONDANSETRON 4MG TAB PO PRN (12:36)
[2024-11-11] MEDS: FUROSEMIDE 20MG/2ML VIAL IV ONE (12:36)
[2024-11-11 14:30] VITALS: BP 112/69; TEMP 98.1; O2SAT 98
[2024-11-11] MEDS: METAXALONE 800 MG TABLET PO PRN (15:52)
[2024-11-11] MEDS: FUROSEMIDE 100MG/10ML VIAL IV SCH (18:04)
[2024-11-11] MEDS: MAGNESIUM GLUCONATE 500 MG TAB PO SCH (21:06)
[2024-11-11 21:12] VITALS: BP 90/46; TEMP 98.1; O2SAT 96
[2024-11-11] MEDS: MIDODRINE 2.5 MG TAB PO SCH (23:02)
[2024-11-11 23:54] VITALS: BP 98/62
[2024-11-12] VITALS (12 sets, daily range): BP systolic 78–110; BP diastolic 46–64; TEMP 98.1–98.2; O2SAT 92–95
[2024-11-12 05:06] LABS: BASO % 0.2 % (0.0-1.0); EOS # 0.1 10^3/uL (0.0-0.5); EOS % 2.1 % (0.0-3.0); HEMATOCRIT 26.4 % (42.0-52.0); HEMOGLOBIN 8.7 g/dl (13.5-17.5); LYMPH # 0.6 10^3/uL (1.5-5.0); LYMPH % 12.4 % (24.0-44.0); MEAN CORPUSCULAR HEMOGLOBIN 28.4 pg (27.0-33.0); MEAN CORPUSCULAR VOLUME 86.3 fl (80.0-96.0); MONO # 0.7 10^3/uL (0.0-0.8); MONO % 14.9 % (2.0-8.0); NEUTROPHILS # 3.4 10^3/uL (1.5-8.5); NEUTROPHILS % 70.2 % (36.0-66.0); PLATELET COUNT, AUTOMATED 106 10^3/uL (150-450); RED BLOOD COUNT 3.06 10^6/uL (4.30-6.10); WHITE BLOOD COUNT 4.8 10^3/uL (4.0-10.0)
[2024-11-12 05:28] LABS: CALCIUM LEVEL 7.5 MG/DL (8.3-10.6); CREATININE FOR GFR 1.35 MG/DL (0.70-1.30); GLOMERULAR FILTRATION RATE 56.8 (>49); POTASSIUM SERUM 3.6 MMOL/L (3.5-5.1)
[2024-11-12] MEDS: LEVOTHYROXINE 37.5MCG PER 1/2TAB (0.0375MG) PO SCH (06:23)
[2024-11-12] MEDS: FUROSEMIDE 40MG/4ML VIAL IV SCH (09:00)
[2024-11-12] MEDS: CIPROFLOXACIN 500MG TABLET PO SCH (10:42)
[2024-11-12] MEDS: FERROUS SULFATE 325MG TAB PO SCH (10:42)
[2024-11-12 12:06] LABS: BILIRUBIN,DIRECT 1.1 MG/DL (<0.4); BILIRUBIN,TOTAL 2.1 MG/DL (0.3-1.2); TOTAL PROTEIN 5.9 G/DL (5.7-8.2)
[2024-11-12] MEDS: MIDODRINE 5 MG TAB PO SCH (12:10)
[2024-11-12] MEDS ORDERED: MIDODRINE 5 MG TAB PO SCH (16:00)
[2024-11-13] VITALS (9 sets, daily range): BP systolic 88–102; BP diastolic 52–63; TEMP 98.1–99.4; O2SAT 85–98
[2024-11-13 06:27] LABS: BASO % 0.5 % (0.0-1.0); EOS # 0.1 10^3/uL (0.0-0.5); EOS % 2.1 % (0.0-3.0); HEMATOCRIT 24.8 % (42.0-52.0); HEMOGLOBIN 8.1 g/dl (13.5-17.5); LYMPH # 0.5 10^3/uL (1.5-5.0); LYMPH % 13.7 % (24.0-44.0); MEAN CORPUSCULAR HEMOGLOBIN 28.5 pg (27.0-33.0); MEAN CORPUSCULAR HGB CONC 32.7 g/dl (32.0-36.5); MEAN CORPUSCULAR VOLUME 87.3 fl (80.0-96.0); MONO # 0.5 10^3/uL (0.0-0.8); MONO % 14.2 % (2.0-8.0); NEUTROPHILS # 2.6 10^3/uL (1.5-8.5); NEUTROPHILS % 69.2 % (36.0-66.0); RED BLOOD COUNT 2.84 10^6/uL (4.30-6.10); WHITE BLOOD COUNT 3.7 10^3/uL (4.0-10.0)
[2024-11-13 06:29] LABS: PLATELET COUNT, AUTOMATED 92 10^3/uL (150-450)
[2024-11-13 06:39] LABS: ALBUMIN 2.4 G/DL (3.2-5.2); BILIRUBIN,TOTAL 1.8 MG/DL (0.3-1.2); CALCIUM LEVEL 7.7 MG/DL (8.3-10.6); CREATININE FOR GFR 1.33 MG/DL (0.70-1.30); GLOMERULAR FILTRATION RATE 57.8 (>49); POTASSIUM SERUM 3.6 MMOL/L (3.5-5.1); TOTAL PROTEIN 6.1 G/DL (5.7-8.2)
[2024-11-14] VITALS (13 sets, daily range): BP systolic 90–111; BP diastolic 42–63; TEMP 98.1–99.3; O2SAT 86–95
[2024-11-14 00:44] LABS: BASO % 0.2 % (0.0-1.0); EOS # 0.1 10^3/uL (0.0-0.5); EOS % 1.5 % (0.0-3.0); HEMATOCRIT 24.9 % (42.0-52.0); HEMOGLOBIN 8.1 g/dl (13.5-17.5); LYMPH # 0.5 10^3/uL (1.5-5.0); LYMPH % 11.4 % (24.0-44.0); MEAN CORPUSCULAR HEMOGLOBIN 29.2 pg (27.0-33.0); MEAN CORPUSCULAR HGB CONC 32.5 g/dl (32.0-36.5); MEAN CORPUSCULAR VOLUME 89.9 fl (80.0-96.0); MONO # 0.7 10^3/uL (0.0-0.8); MONO % 14.6 % (2.0-8.0); NEUTROPHILS # 3.3 10^3/uL (1.5-8.5); NEUTROPHILS % 71.9 % (36.0-66.0); RED BLOOD COUNT 2.77 10^6/uL (4.30-6.10); WHITE BLOOD COUNT 4.7 10^3/uL (4.0-10.0)
[2024-11-14 00:49] LABS: CK-MB VALUE MASS < 1.0 NG/ML (<3.6); PLATELET COUNT, AUTOMATED 92 10^3/uL (150-450)
[2024-11-14 00:50] LABS: ALBUMIN 2.6 G/DL (3.2-5.2); BILIRUBIN,DIRECT 0.9 MG/DL (<0.4); BILIRUBIN,TOTAL 1.6 MG/DL (0.3-1.2); CALCIUM LEVEL 7.7 MG/DL (8.3-10.6); CREATININE FOR GFR 1.35 MG/DL (0.70-1.30); GLOMERULAR FILTRATION RATE 56.8 (>49); MAGNESIUM LEVEL 1.4 MG/DL (1.8-2.4); POTASSIUM SERUM 3.8 MMOL/L (3.5-5.1); TOTAL PROTEIN 6.2 G/DL (5.7-8.2)
[2024-11-14 00:52] LABS: CPK CREATINE PHOSPHOKINASE 37 U/L (46-171)
[2024-11-14 00:53] LABS: ERYTHROCYTE SEDIMENTATION RATE 42 mm/hr (0-20)
[2024-11-14 01:01] LABS: PROCALCITONIN 0.31 ng/ml
[2024-11-14] MEDS: LACTULOSE 20GM/30ML SYRUP UDC PO SCH ×2 (01:21→20:51)
[2024-11-14] MEDS ORDERED: LEVALBUTEROL 1.25MG 0.5ML CONCENTRATE NEB INH PRN (01:35)
[2024-11-14] MEDS: MAG SULF 1GM/100ML (MAG RUN) 1 GM in IV 1 EA IV SCH (02:03)
[2024-11-14 02:45] LABS: CK-MB VALUE MASS < 1.0 NG/ML (<3.6)
[2024-11-14 02:46] LABS: CPK CREATINE PHOSPHOKINASE 27 U/L (46-171)
[2024-11-14] MEDS: MORPHINE 2 MG/ML 1ML VIAL IV ONE (02:55)
[2024-11-14] MEDS: CIPROFLOXACIN 250MG TAB PO ONE (03:58)
[2024-11-14 04:51] LABS: BASO % 0.4 % (0.0-1.0); EOS # 0.1 10^3/uL (0.0-0.5); EOS % 1.2 % (0.0-3.0); HEMATOCRIT 24.1 % (42.0-52.0); HEMOGLOBIN 7.9 g/dl (13.5-17.5); LYMPH # 0.6 10^3/uL (1.5-5.0); LYMPH % 12.2 % (24.0-44.0); MEAN CORPUSCULAR HEMOGLOBIN 28.7 pg (27.0-33.0); MEAN CORPUSCULAR HGB CONC 32.8 g/dl (32.0-36.5); MEAN CORPUSCULAR VOLUME 87.6 fl (80.0-96.0); MONO # 0.7 10^3/uL (0.0-0.8); MONO % 13.8 % (2.0-8.0); NEUTROPHILS # 3.5 10^3/uL (1.5-8.5); PLATELET COUNT, AUTOMATED 100 10^3/uL (150-450); RED BLOOD COUNT 2.75 10^6/uL (4.30-6.10); WHITE BLOOD COUNT 4.9 10^3/uL (4.0-10.0)
[2024-11-14 05:11] LABS: ALBUMIN 2.8 G/DL (3.2-5.2); BILIRUBIN,TOTAL 1.7 MG/DL (0.3-1.2); CREATININE FOR GFR 1.32 MG/DL (0.70-1.30); GLOMERULAR FILTRATION RATE 58.3 (>49); POTASSIUM SERUM 3.8 MMOL/L (3.5-5.1); TOTAL PROTEIN 6.3 G/DL (5.7-8.2)
[2024-11-14] MEDS: CEFDINIR 300 MG CAP (OMNICEF) PO SCH (08:36)
[2024-11-14] MEDS: DOXYCYCLINE HYCLATE 100MG TABLET PO SCH (08:37)
[2024-11-14] MEDS ORDERED: CIPROFLOXACIN 250MG TAB PO SCH (17:00)
[2024-11-14] MEDS ORDERED: PILL CUTTER 1 EACH XX PRN (19:10)
[2024-11-15] VITALS (11 sets, daily range): BP systolic 90–110; BP diastolic 28–60; TEMP 98.1–99; O2SAT 92–97
[2024-11-15 06:34] LABS: BASO % 0.6 % (0.0-1.0); EOS # 0.1 10^3/uL (0.0-0.5); EOS % 1.9 % (0.0-3.0); HEMATOCRIT 23.1 % (42.0-52.0); HEMOGLOBIN 7.5 g/dl (13.5-17.5); LYMPH # 0.5 10^3/uL (1.5-5.0); LYMPH % 14.9 % (24.0-44.0); MEAN CORPUSCULAR HEMOGLOBIN 29.1 pg (27.0-33.0); MEAN CORPUSCULAR HGB CONC 32.5 g/dl (32.0-36.5); MEAN CORPUSCULAR VOLUME 89.5 fl (80.0-96.0); MONO # 0.5 10^3/uL (0.0-0.8); MONO % 14.6 % (2.0-8.0); NEUTROPHILS # 2.1 10^3/uL (1.5-8.5); NEUTROPHILS % 67.4 % (36.0-66.0); RED BLOOD COUNT 2.58 10^6/uL (4.30-6.10); WHITE BLOOD COUNT 3.1 10^3/uL (4.0-10.0)
[2024-11-15 06:54] LABS: ALBUMIN 2.8 G/DL (3.2-5.2); ALKALINE PHOSPHATASE 117 U/L (40-129); ALT/SGPT 36 U/L (7.0-40); AST/SGOT 70 U/L (<34); BLOOD UREA NITROGEN 17 MG/DL (9-23); CALCIUM LEVEL 8.7 MG/DL (8.3-10.6); CARBON DIOXIDE LEVEL 27 MMOL/L (20-31); CHLORIDE LEVEL 102 MMOL/L (98-107); CREATININE FOR GFR 1.21 MG/DL (0.70-1.30); GLOMERULAR FILTRATION RATE > 60.0 (>49); GLUCOSE, FASTING 104 MG/DL (74-106); PLATELET COUNT, AUTOMATED 78 10^3/uL (150-450); POTASSIUM SERUM 3.6 MMOL/L (3.5-5.1); SODIUM LEVEL 135 MMOL/L (136-145); TOTAL PROTEIN 5.9 G/DL (5.7-8.2)
[2024-11-15] MEDS ORDERED: MIDODRINE 5 MG TAB PO SCH (08:00)
[2024-11-15] MEDS: MIDODRINE 5 MG TAB PO SCH (08:37)
[2024-11-15] MEDS ORDERED: CEFD300CAP PO (18:14)
[2024-11-15] MEDS ORDERED: MIDO5TA PO (18:14)
[2024-11-15] MEDS ORDERED: RAME8TAB2 PO (18:14)
[2024-11-15] MEDS ORDERED: ONDA-83 PO (18:14)
[2024-11-15] MEDS ORDERED: FERR1TAB8 PO (18:14)
[2024-11-15] MEDS ORDERED: DOXY100T PO (18:14)
== END 2024-11-15 20:00 | disposition short-term general hospital (02) | DRG 432 ==
LOC: M ED 09:38 → EDBD 09:38 → M ED INP 12:47 → M MSPAV 11-11 14:21
PROVIDERS: ADMIT Internal Medicine Nephrology; ATTEND Internal Medicine
PROC: 0W993ZZ Drainage of Right Pleural Cavity, Percutaneous Approach (ICD-10-PCS; principal; 2024-11-10 11:30)
PROC: 30233N1 Transfusion of Nonautologous Red Blood Cells into Peripheral Vein, Percutaneous Approach (ICD-10-PCS; 2024-11-15)
DX: K70.31 Alcoholic cirrhosis of liver with ascites (principal); J18.9 Pneumonia, unspecified organism; J90 Pleural effusion, not elsewhere classified; K76.6 Portal hypertension; I50.22 Chronic systolic (congestive) heart failure; E03.9 Hypothyroidism, unspecified; D69.59 Other secondary thrombocytopenia; E78.5 Hyperlipidemia, unspecified; K21.9 Gastro-esophageal reflux disease without esophagitis; R94.5 Abnormal results of liver function studies; I11.0 Hypertensive heart disease with heart failure; E88.09 Other disorders of plasma-protein metabolism, not elsewhere classified; I95.9 Hypotension, unspecified; D50.9 Iron deficiency anemia, unspecified; K72.90 Hepatic failure, unspecified without coma; F32.A Depression, unspecified; M19.90 Unspecified osteoarthritis, unspecified site; G43.909 Migraine, unspecified, not intractable, without status migrainosus; Z79.899 Other long term (current) drug therapy; Z79.890 Hormone replacement therapy; Z88.8 Allergy status to other drugs, medicaments and biological substances; Z88.6 Allergy status to analgesic agent; K57.90 Diverticulosis of intestine, part unspecified, without perforation or abscess without bleeding; Z87.442 Personal history of urinary calculi; G47.00 Insomnia, unspecified